=== PATIENT | female | born 1975 | race Caucasian/White ===

== ENCOUNTER 2018-02-05 08:00 | Inpatient (IN) | payer BC ==
--- NOTE | 2018-02-04 09:46 | HP ---
Admitting History and Physical - Primary Care Physician PCP: Gerson Augustin - Admission Chief Complaint: BRCA positve History of Present Illness: 42 year old premenapausal female ,BRCA1 positive, with strong family H/O breast cancer. She underwent reduction mammoplasty at age 24. Mammogram 2016 was negative and breast MRI 08/2017 birad 2. She is here for risk reducing prophylactic mastectomies and reconstruction. History Source: Patient Limitations to Obtaining History: No Limitations - Past Surgical History Past Surgical History: Yes: (x2) Additional Past Surgical History: reduction mastopexy at age 24. - Smoking History Smoking history: Former smoker Have you smoked in the past 12 months: No - Alcohol/Substance Use Hx Alcohol Use: Yes (social) Home Medications - Allergies Allergies/Adverse Reactions: Allergies Allergy/AdvReac Type Severity Reaction Status Date / Time No Known Allergies Allergy Verified 02/04/18 09:46 Family Disease History - Family Disease History Family Disease History: CA: Father (prostate and liver ca 55), Mother ( Breast cancer 47.59,66 BRCA +) Other Family History: Mat GGm breast ca 40-50. mat GA breast ca 40. pat GM throat ca 80 Physical Examination Constitutional: Yes: Well Nourished Breast(s): Yes: Other (obvious bilateral reduction mastopexy incisions. C cup breasts , no palpable densities or adnopathy bilaterally) Problem List - Problems (1) BRCA gene mutation positive Code(s): Z15.01 - GENETIC SUSCEPTIBILITY TO MALIGNANT NEOPLASM OF BREAST; Z15.09 - GENETIC SUSCEPTIBILITY TO OTHER MALIGNANT NEOPLASM Assessment/Plan Bilateral total mastectomies with reconstruction
[2018-02-12 09:11] VITALS: BMI 31.4
[2018-02-14] MEDS ORDERED: HEPARIN NA (PORCINE) 5,000 UNITS/ML 1ML VIAL ONE (07:13)
[2018-02-14] MEDS ORDERED: BUPIVACAINE HCL/PF 0.25% (2.5MG/ML) 10 ML VIAL ONE (07:13)
[2018-02-14] MEDS ORDERED: LIDOCAINE 1%/EPI 1:100000 (20 ML MULTI DOSE VIAL) ONE (07:13)
[2018-02-14] MEDS ORDERED: PAPAVERINE HCL 30 MG/1 ML 10 ML VIAL NR ONE (07:14)
[2018-02-14] MEDS ORDERED: ROCURONIUM BROMIDE 50 MG/5 ML VIAL ONE ×4 (07:15→15:16)
[2018-02-14] MEDS ORDERED: SUCCINYLCHOLINE CHLORIDE 200 MG/10 ML VIAL ONE (07:15)
[2018-02-14] MEDS ORDERED: PROPOFOL 20 ML ONE ×2 (07:15→17:37)
[2018-02-14] MEDS ORDERED: fentaNYL CITRATE 250 MCG/5 ML VIAL ONE ×2 (07:15→10:37)
[2018-02-14] MEDS ORDERED: DEXAMETHASONE SOD PHOSPHATE 4 MG/1 ML VIAL ONE (07:16)
[2018-02-14] MEDS ORDERED: MIDAZOLAM HCL 2 MG/2 ML SINGLE DOSE VIAL ONE ×2 (07:16→07:53)
[2018-02-14] MEDS ORDERED: LIDOCAINE HCL/PF 2% SDV 5ML VIAL ONE (07:16)
--- NOTE | 2018-02-14 07:55 | HP ---
History & Physical Update - History History: No Change - Physical Physical: No Change - Assessment Assessment: No Change - Plan Plan: No Change (no changes since visit on 02/04/18)
[2018-02-14] MEDS ORDERED: HEPARIN NA (PORCINE) 5,000 UNITS/ML 1ML VIAL SQ ONE (08:10)
[2018-02-14] MEDS ORDERED: ceFAZolin SODIUM 1 GM VIAL ONE ×2 (08:19→21:27)
[2018-02-14] MEDS ORDERED: ceFAZolin SODIUM 1 GM VIAL IVPB ONE ×2 (08:20→08:26)
[2018-02-14] MEDS ORDERED: BUPIVACAINE LIPOSOME/PF (EXPAREL) 266 MG/20 ML VIAL NR ONE (09:00)
--- NOTE | 2018-02-14 14:19 | OP ---
DATE OF OPERATION: 02/14/2018 PREOPERATIVE DIAGNOSIS: Genetic susceptibility to breast cancer, high-risk, BRCA1-positive. POSTOPERATIVE DIAGNOSIS: Genetic susceptibility to breast cancer, high-risk, BRCA1-positive. PROCEDURE: Bilateral total nipple-sparing mastectomy through an inframammary approach with bilateral BALJIT flap reconstruction. ANESTHESIA: General endotracheal anesthesia. PRIMARY SURGEON: Mellissa Bragg MD WOOD GOUGER: JOSELO Le PRIMARY SURGEON: For the bilateral BALJIT flap reconstruction was Mellissa Araujo MD, with his co-surgeon, Apollo Holt MD, and their veterinary technician assistant is JOSELO. COMPLICATIONS: There were no complications. INDICATIONS FOR PROCEDURE: Briefly, the patient is a 42-year-old, G2, P3, premenopausal, white female with English, Ecuadorean, and Irish heritage. She does have some maternal Ashkenazi Zoroastrian heritage. The patient's mother had breast cancer at age 47 then later at 59 and 66 and tested BRCA1 positive. The patient herself tested BRCA1 positive in May 2017. She has a history of undergoing bilateral reduction mastopexy surgery at age 24. The patient was seen in consultation regarding risk-reduction strategies for breast cancer and understood her options and chose to undergo bilateral risk-reduction, prophylactic mastectomy. She understood our nipple-sparing technique and understood all risks, complications including risks of skin flap necrosis, nipple loss, hematoma, and infection, and was willing to proceed. She was seen by our plastic surgeons preoperatively and understood the reconstruction options and chose to have BALJIT flap reconstruction. DESCRIPTION OF PROCEDURE: The patient was brought in for the surgery, on February 14, 2018. In the holding area, verification was made and informed consent was obtained. She was marked preoperatively by the plastic surgeons. The patient was brought into the operating room and laid on the OR table in the supine position. Venodynes were placed on the lower extremities prior to induction. She received 2 grams of Ancef prior to incision. She underwent general endotracheal anesthesia. Both breasts were sterilely prepped and draped in the usual fashion as well as the abdomen. The plastic surgeons marked out the abdominal perforators using the SPY skin perfusion device at the beginning of the case prior to incision. They also used hand-held Doppler to identify the perforators. Once the patient was properly anesthetized and sterilely prepped and draped in the usual fashion, the mastectomies were begun. The left mastectomy was first performed through an inframammary incision probably about 15 cm in length to allow exposure for the BALJIT flap reconstruction. The incision was placed in the inframammary fold. The skin edge was everted and the breast was retracted inferiorly using Turner clamps. The skin flap was raised superiorly to the level of the clavicle, medially to the level of the sternum, laterally to the level of the latissimus, and inferiorly below the level of the inframammary fold. The skin flap was raised using the Peak radiofrequency device. The breast was then taken down off the pectoralis major muscle using electrocautery from [id number] and completely removed intact. It was oriented with a long lateral, short superior suture and weighed to allow for appropriate cosmetic result. Hemostasis was achieved and the wound was copiously irrigated with warm sterile saline. The skin flaps were trimmed for a good cosmetic result. A retroareolar biopsy was taken underneath the left nipple-areolar complex and sent for frozen section came back benign, so the nipple was spared. At this point, the right breast was approached. Again, inframammary incision was made symmetrical to the left side about 15 cm in length. The skin edges were everted and the breast was retracted inferiorly using Finney clamps. The skin flap was raised using the Peak radiofrequency device superiorly to the level of the clavicle, medially to the level of the sternum, laterally to the level of the latissimus, and inferiorly below the level of the inframammary fold. The breast was taken down off the pectoralis major muscle using the electrocautery from [id number]-[id number] and completely removed intact. It was oriented with a long lateral, short superior suture and weighed to allow for appropriate cosmetic result. Hemostasis was achieved using electrocautery and the wound was copiously irrigated with warm sterile saline. A retroareolar biopsy was taken underneath the right nipple-areolar complex and sent for frozen section came back negative, and so the right nipple was spared, as well. We did use the SPY skin perfusion device at the end of the mastectomies which showed good skin perfusion of both mastectomy skin flaps. The rest of the case was performed and will be dictated by Dr. Araujo and Dr. Pringle to include the BALJIT flap reconstruction. All wounds will be closed by Plastic Surgery. The patient will be admitted postoperatively into the ICU for close monitoring of her flaps. All sponge and needle counts were correct at this point in the case and estimated blood loss at this point was about 100 mL. She was hemodynamically stable. MELLISSA BRAGG M.D. JO [id number]
[2018-02-14] MEDS ORDERED: NEOSTIGMINE METHYLSULFATE 0.5 MG/ML - 10 ML MDV ONE (17:52)
[2018-02-14] MEDS ORDERED: diazePAM 5 MG TABLET PO PRN (17:56)
[2018-02-14] MEDS ORDERED: DEXTROSE 5%-0.45% SALINE 1,000 ML IV SCH (18:00)
[2018-02-14] MEDS ORDERED: ACETAMINOPHEN 1000 MG/100 ML VIAL (NON FORMULARY) IVPB ONE (18:15)
--- NOTE | 2018-02-14 18:21 | OP ---
Operative Note - Note: Operative Date: 02/14/18 Pre-Operative Diagnosis: Genetic susceptibility to Breast Cancer Operation: Bilateral breast reconstruction with Deep Inferior Epigastric Ball Thread Machine Tender Microvascular Free Flaps Findings: C/W Dx Implants: None Post-Operative Diagnosis: Same as Pre-op Surgeon: Linden Araujo Intake Counselor: Apollo Holt Anesthesia: General Specimens Removed: As per surgical oncology Estimated Blood Loss (mls): 250 Drains & Tubes with Location: #15 Round elaine drain to each breast. #19 Round elaine drain x2 to abdomen Blood Volume Replaced (mls): 0 Operative Report Dictated: Yes
[2018-02-14] MEDS ORDERED: ONDANSETRON 4 MG/2 ML VIAL IVPUSH PRN (18:26)
[2018-02-14] MEDS ORDERED: ACETAMINOPHEN INJECTION 100 ML IVPB ONE (18:29)
[2018-02-14] MEDS ORDERED: LACTATED RINGERS SOLUTION 1,000 ML IV SCH ×3 (18:30→21:13)
[2018-02-14] MEDS ORDERED: MIDAZOLAM HCL 2 MG/2 ML SINGLE DOSE VIAL IVPUSH ONE (18:45)
--- NOTE | 2018-02-14 20:53 | CONSULT ---
Consultation: REQUESTING PROVIDER: CONSULT REQUEST: We have been asked to medically evaluate this patient for ( intensive care ). HISTORY OF PRESENT ILLNESS: 42 y/o f with BRCA1 postive and strong family h/o breast cancer was admitted for prophylactic/ risk reduction mastectomy with breast reconstruction. She underwent reduction mammoplasty at age 24. Mammogram 05/2017 was negative and breast MRI 08/2017 [facility] REVIEW OF SYSTEMS: PHYSICAL EXAMINATION Vital Signs - 24 hr 02/14/18 02/14/18 07:06 18:16 Temperature 98.2 F 99.1 F Pulse Rate 78 82 Respiratory 16 18 Rate Blood Pressure 119/82 149/46 O2 Sat by Pulse 100 100 Oximetry (%) GENERAL: Awake, alert, and fully oriented, in pain HEAD: Normal with no signs of trauma. EARS, NOSE, THROAT:dry mucous membranes. NECK: Normal range of motion, supple without lymphadenopathy, JVD, or masses. LUNGS: Breath sounds equal, clear to auscultation bilaterally. No wheezes, and no crackles. No accessory muscle use. HEART: Regular rate and rhythm, normal S1 and S2 without murmur, ABDOMEN: Soft, nontender, not distended, suture line healthy, drains in situ draining haemorrhaic fluid, suture line right breast next to areola healty, MUSCULOSKELETAL: Normal range of motion at all joints. No bony deformities or tenderness. No CVA tenderness. UPPER EXTREMITIES: 2+ pulses, warm, No peripheral edema. LOWER EXTREMITIES: warm, well-perfused. No calf tenderness. SKIN: Warm, dry, Laboratory Results - last 24 hr 02/14/18 02/14/18 02/14/18 06:13 06:13 06:50 Serum , Qual Negative Blood Type O NEGATIVE O NEGATIVE Antibody Screen Negative Active Medications Generic Name Dose Route Start Last Admin Trade Name Freq PRN Reason Stop Dose Admin Aspirin 325 mg 02/14/18 19:00 Asa - PO DAILY [facility]E Diazepam 5 mg 02/14/18 19:00 Valium - PO Q8H PRN ANXIETY Docusate Sodium 100 mg 02/14/18 22:00 Colace - PO BID [facility] Enoxaparin Sodium 40 mg 02/15/18 10:00 Lovenox - SQ DAILY [facility] Cefazolin Sodium 1 gm/ 50 mls @ 100 mls/hr 02/14/18 21:00 Dextrose IVPB 02/15/18 20:59 Q6H-IV [facility] Dextrose/Sodium Chloride 1,000 mls @ 125 mls/hr 02/14/18 18:00 D5-1/2ns - IV 02/15/18 07:59 ASDIR [facility] Dextrose/Sodium Chloride 1,000 mls @ 75 mls/hr 02/15/18 08:00 D5-1/2ns - IV ASDIR [facility] Lactated Ringer's 1,000 mls @ 75 mls/hr 02/14/18 18:30 Lactated Ringers Solution IV ASDIR [facility] Ondansetron HCl 4 mg 02/14/18 18:26 Zofran Injection IVPUSH 02/15/18 03:00 Q6H PRN NAUSEA AND/OR VOMITING Oxycodone HCl 5 mg 02/15/18 17:56 Roxicodone - PO Q4H PRN PAIN LEVEL 1-5 Oxycodone HCl 10 mg 02/14/18 17:56 Roxicodone - PO Q4H PRN PAIN LEVEL 6-10 ASSESSMENT/PLAN: Risk reduction/prophylactic b/l mastectomy with reconstruction s/p Bilateral breast reconstruction with Deep Inferior Epigastric Textile Technical Officer Microvascular Free Flaps POD # 0 Monitor vitals frequent flap check. on aspirin 325 daily on cefazolin as per surgery team. pain control, on oxycodone. continue with IV fluid. NPO Today zofran for nausea. monitor drain outputs incentive spirometry. fluid on LR 125 ml/hr electrolyte; in am nutrition clear liquid from tomorrow dvt pro on lovenox 40 and scd gi pro: pepcid iv dispo: icu Visit type - Emergency Visit Emergency Visit: Yes ED Registration Date: 02/14/18 Care time: The patient presented to the Emergency Department on the above date and was hospitalized for further evaluation of their emergent condition. - New Patient This patient is new to me today: Yes Date on this admission: 02/14/18 - Critical Care Critical Care patient: Yes Total Critical Care Time (in minutes): 45 Critical Care Statement: The care of this patient involved high complexity decision making to prevent further life threatening deterioration of the patient 's condition and/or to evaluate & treat vital organ system(s) failure or risk of failure.
[2018-02-14] MEDS ORDERED: DEXTROSE 5%-WATER - 50 ML IVPB ONE (21:27)
[2018-02-14] MEDS: FAMOTIDINE 20 MG/50 ML IVPB 20 MG/50 ML MG IVPB SCH (22:01)
[2018-02-14] MEDS: DOCUSATE SODIUM 100 MG CAPSULE (FP) PO SCH (22:02)
[2018-02-14] MEDS: CEFAZOLIN 1 GM in DEXTROSE 5%-WATER - 50 ML IVPB SCH (22:02)
[2018-02-14] MEDS: oxyCODONE HCL 5 MG TABLET PO PRN (22:04)
[2018-02-14] MEDS: ASPIRIN 325 MG TABLET PO SCH (22:04)
[2018-02-14] MEDS: diazePAM 5 MG TABLET PO PRN (22:51)
[2018-02-15] MEDS ORDERED: ceFAZolin SODIUM 1 GM VIAL ONE ×3 (02:03→15:33)
[2018-02-15] MEDS ORDERED: DEXTROSE 5%-WATER - 50 ML IVPB ONE ×3 (02:03→15:33)
[2018-02-15] MEDS: CEFAZOLIN 1 GM in DEXTROSE 5%-WATER - 50 ML IVPB SCH ×2 (02:05→09:18)
[2018-02-15] MEDS: oxyCODONE HCL 5 MG TABLET PO PRN ×3 (02:06→17:08)
[2018-02-15 06:17] LABS: ANION GAP 7 (8-16); BLOOD UREA NITROGEN 12 mg/dL (7-18); CALCIUM 7.9 mg/dL (8.5-10.1); CHLORIDE 106 mmol/L (98-107); CO2 26 mmol/L (21-32); CREATININE 0.5 mg/dL (0.55-1.02); GLUCOSE,RANDOM 119 mg/dL (74-106); POTASSIUM 4.1 mmol/L (3.5-5.1); SODIUM 139 mmol/L (136-145)
[2018-02-15 06:37] LABS: BASO % 0.3 % (0-2.0); EOS % 0.2 % (0-4.5); HEMATOCRIT 29.9 % (32.4-45.2); HEMOGLOBIN 9.7 GM/dL (10.7-15.3); LYMPH % 13.1 % (8-40); MCH 26.3 pg (25.7-33.7); MCHC 32.4 g/dl (32.0-36.0); MEAN CELL VOLUME 81.2 fl (80-96); MEAN PLT VOLUME 10.5 fl (7.5-11.1); NEUT % 74.4 % (42.8-82.8); PLATELET COUNT 202 K/MM3 (134-434); RBC 3.68 M/mm3 (3.60-5.2); RDW 15.5 % (11.6-15.6); WHITE BLOOD COUNT 13.9 K/mm3 (4.0-10.0)
--- NOTE | 2018-02-15 06:57 | SURG ---
Surgery Consumer Credit Counselor Note Consumer Credit Counselor: Bruno Cho PA-C Date of Service: 02/14/18 Diagnosis: Genetic susceptibility to Breast Cancer Procedure: Bilateral breast reconstruction with Deep Inferior Epigastric Yarn Washer Microvascular Free Flaps I was present for the entirety of the operative procedure. For further detail, please refer to operative report. Visit type - Case Type Case Type: Scheduled - New patient This patient is new to me today: Yes Date on this admission: 02/15/18
[2018-02-15] MEDS ORDERED: DEXTROSE 5%-0.45% SALINE 1,000 ML IV SCH (08:00)
[2018-02-15] MEDS: DOCUSATE SODIUM 100 MG CAPSULE (FP) PO SCH ×2 (09:18→21:16)
[2018-02-15] MEDS: ASPIRIN 325 MG TABLET PO SCH (09:18)
[2018-02-15] MEDS: diazePAM 5 MG TABLET PO PRN ×2 (09:18→22:01)
[2018-02-15] MEDS: FAMOTIDINE 20 MG/50 ML IVPB 20 MG/50 ML MG IVPB SCH (09:19)
--- NOTE | 2018-02-15 09:20 | PN ---
Progress Note (short form) - Note Progress Note: POD#1 Pt states that she having arm pain, left more tender than the right. No numbness or tingling and hurts more when extending/flexing the elbows. No nausea /emesis and tolerated clears. Vital Signs Period Temp Pulse Resp BP Sys/Carnes Pulse Ox Last 24 Hr 98.3 F-99.1 F 70-89 16-22 118-1136/46-85 100-100 FC-850 yellow urine Thad's serosangrenous THAD: Left upper 38ml Right upper 17ml Left lower 30ml Right lower 16 ml GEN: Appears comfortable Right breast: flap with good cap refill/warm and inc c/d/i, good doppler signal Left breast: flap with good cap refill/warm and inc c/d/i, good doppler signal Abd: inc c/d/i without drainage noted/or erythema LE: no calf tenderness, TEDs and SCDs in place Upper ext: 5/5 flexion/extension b/l, web programmer strength equal b/l. +2 radial pulse. Right AC IV site without any erythema, not tender to touch. CBC, BMP //18 05:30 //18 05:30 A/p: 42 yo female s/p Bilateral breast reconstruction with Deep Inferior Epigastric Superior Court Clerk Microvascular Free Flaps Pt with good blow flow/doppler signals to flaps b/l. Continue to monitor as per protocol Carlson to be removed today Diet advanced/continue IV hydration until tolerating regular diet DVT ppx with lovenox SQ/ELOISA/SCDs HOB/feet to remain flexed at all times Added Oxycontin 10mg BID, scheduled D/w Dr. Araujo
--- NOTE | 2018-02-15 10:07 | PN ---
Progress Note, Physician Chief Complaint: High risk breast cancer,Gene positive, S/P bilateral total mastectomies with BALJIT reconstruction POD # 1 History of Present Illness: Patient is c/o pain in chest area and left arm where prior IV was placed, sitting up in bed and would like to get out of bed today. no nausea or vomiting - Current Medication List Current Medications: Active Medications Aspirin (Asa -) 325 mg PO DAILY [facility] Last Admin: 02/15/18 09:18 Dose: 325 mg Diazepam (Valium -) 5 mg PO Q8H PRN PRN Reason: ANXIETY Last Admin: 02/15/18 09:18 Dose: 5 mg Docusate Sodium (Colace -) 100 mg PO BID [facility] Last Admin: 02/15/18 09:18 Dose: 100 mg Enoxaparin Sodium (Lovenox -) 40 mg SQ DAILY [facility] Cefazolin Sodium 1 gm/ (Dextrose) 50 mls @ 100 mls/hr IVPB Q6H-IV [facility] Stop: 02/15/18 20:59 Last Admin: 02/15/18 09:18 Dose: 100 mls/hr Dextrose/Sodium Chloride (D5-1/2ns -) 1,000 mls @ 75 mls/hr IV ASDIR [facility] Last Admin: 02/14/18 20:30 Dose: 0 mls Famotidine/Sodium Chloride (Pepcid 20 Mg Premixed Ivpb -) 20 mg in 50 mls @ 100 mls/hr IVPB BID [facility] Last Admin: 02/15/18 09:19 Dose: 100 mls/hr Oxycodone HCl (Roxicodone -) 5 mg PO Q4H PRN PRN Reason: PAIN LEVEL 1-5 Oxycodone HCl (Roxicodone -) 10 mg PO Q4H PRN PRN Reason: PAIN LEVEL 6-10 Last Admin: 02/15/18 08:55 Dose: 10 mg - Objective Vital Signs: Vital Signs Temperature 98.4 F 02/15/18 02:12 Pulse Rate 80 02/15/18 08:00 Respiratory Rate 16 02/15/18 08:00 Blood Pressure 140/64 02/15/18 08:00 O2 Sat by Pulse Oximetry (%) 100 02/14/18 21:00 Breast(s): Yes: Other (Breast and abdominal incisions intact without drainage good doppler blood flow to flaps left upper extremity tenderness in area where blood was drawn no erythema or swelling) Labs: CBC, BMP 02/15/18 05:30 02/15/18 05:30 Problem List - Problems (1) BRCA gene mutation positive Code(s): Z15.01 - GENETIC SUSCEPTIBILITY TO MALIGNANT NEOPLASM OF BREAST; Z15.09 - GENETIC SUSCEPTIBILITY TO OTHER MALIGNANT NEOPLASM Assessment/Plan Dr Araujo to evaluate patient this am consider CERAMICS TEACHER for pain management warm compress left arm Dr Grady to evaluate left arm pain consider Carlson to be removed and OOb
[2018-02-15 10:59] LABS: MAGNESIUM 1.9 mg/dL (1.8-2.4)
[2018-02-15] MEDS: oxyCODONE HCL 10 MG SUSTAINED ACTING TABLET PO SCH ×2 (11:25→21:16)
[2018-02-15] MEDS: ENOXAPARIN NA (PORCINE) 40 MG/0.4 ML DISP.SYRIN SQ SCH (11:26)
[2018-02-15] MEDS ORDERED: ONDANSETRON 4 MG/2 ML VIAL IVPUSH ONE (11:32)
--- NOTE | 2018-02-15 12:02 | PN ---
Progress Note (short form) - Note Progress Note: Doing well Pulses good on flaps OOB Ambulation Eat D/c possible tomorrow Senior Applications Engineer consult and PT consult
--- NOTE | 2018-02-15 12:45 | PN ---
Teaching Attending Note Name of Resident: Mello Suarez ATTENDING PHYSICIAN STATEMENT I saw and evaluated the patient. I reviewed the resident's note and discussed the case with the resident. I agree with the resident's findings and plan as documented. SUBJECTIVE: Patient seen and examined in the ICU. Awake and alert. Reports some Left UE pain/discomfort. NO CP or SOB. Seen by surgery this AM. Intake & Output 02/12/18 02/13/18 02/14/18 02/15/18 23:59 23:59 23:59 23:59 Intake Total 4050 Output Total 1126.0 580 Balance 2924.0 -580 Weight 195 lb Last Vital Signs Temp Pulse Resp BP Pulse Ox 98.4 F 77 14 148/64 100 02/15/18 02:12 02/15/18 10:00 02/15/18 10:00 02/15/18 10:00 02/14/18 21:00 Active Medications Aspirin (Asa -) 325 mg PO DAILY [facility] Last Admin: 02/15/18 09:18 Dose: 325 mg Diazepam (Valium -) 5 mg PO Q8H PRN PRN Reason: ANXIETY Last Admin: 02/15/18 09:18 Dose: 5 mg Docusate Sodium (Colace -) 100 mg PO BID [facility] Last Admin: 02/15/18 09:18 Dose: 100 mg Enoxaparin Sodium (Lovenox -) 40 mg SQ DAILY [facility] Last Admin: 02/15/18 11:26 Dose: 40 mg Cefazolin Sodium 1 gm/ (Dextrose) 50 mls @ 100 mls/hr IVPB Q6H-IV [facility] Stop: 02/15/18 20:59 Last Admin: 02/15/18 09:18 Dose: 100 mls/hr Dextrose/Sodium Chloride (D5-1/2ns -) 1,000 mls @ 75 mls/hr IV ASDIR [facility] Last Admin: 02/14/18 20:30 Dose: 0 mls Famotidine/Sodium Chloride (Pepcid 20 Mg Premixed Ivpb -) 20 mg in 50 mls @ 100 mls/hr IVPB BID [facility] Last Admin: 02/15/18 09:19 Dose: 100 mls/hr Oxycodone HCl (Roxicodone -) 5 mg PO Q4H PRN PRN Reason: PAIN LEVEL 1-5 Oxycodone HCl (Roxicodone -) 10 mg PO Q4H PRN PRN Reason: PAIN LEVEL 6-10 Last Admin: 02/15/18 08:55 Dose: 10 mg Oxycodone HCl (Oxycontin -) 10 mg PO BID [facility] Last Admin: 02/15/18 11:25 Dose: 10 mg GENERAL: Awake, alert, and fully oriented, anxious HEAD: Normal with no signs of trauma. EARS, NOSE, THROAT:dry mucous membranes. NECK: Normal range of motion, supple without lymphadenopathy, JVD, or masses. LUNGS: Breath sounds equal, clear to auscultation bilaterally. No wheezes, and no crackles. No accessory muscle use. HEART: Regular rate and rhythm, normal S1 and S2 without murmur, ABDOMEN: Soft, nontender, not distended, suture line healthy, drains in situ draining serosanguinous fluid, suture line right breast next to areola healthy MUSCULOSKELETAL: Normal range of motion at all joints. No bony deformities or tenderness. No CVA tenderness. UPPER EXTREMITIES: 2+ pulses, warm, No peripheral edema. LOWER EXTREMITIES: warm, well-perfused. No calf tenderness. SKIN: Warm, dry, Laboratory Results - last 24 hr 02/15/18 02/15/18 02/15/18 05:30 05:30 05:30 WBC 13.9 H RBC 3.68 Hgb 9.7 L Hct 29.9 L MCV 81.2 MCH 26.3 MCHC 32.4 RDW 15.5 Plt Count 202 MPV 10.5 Absolute Neuts (auto) 10.4 Neutrophils % 74.4 Lymphocytes % 13.1 Monocytes % 12.0 H Eosinophils % 0.2 Basophils % 0.3 Nucleated RBC % 0 Sodium 139 Potassium 4.1 Chloride 106 Carbon Dioxide 26 Anion Gap 7 L BUN 12 Creatinine 0.5 L Creat Clearance w eGFR > 60 Random Glucose 119 H Calcium 7.9 L Phosphorus 3.0 Cancelled Magnesium 1.9 Cancelled ASSESSMENT/PLAN: POD #1: Bilateral breast reconstruction with Deep Inferior Epigastric Railway Track Plant Operator Microvascular Free Flaps Flap check. ASA Cefazolin as per surgery team. Pain control IVF Normal transfusion thresholds PO as tolerated VTE prophylaxis Zofran for nausea. Monitor drain outputs Incentive spirometry. Dr Spaulding
--- NOTE | 2018-02-15 13:06 | PN ---
Progress Note (short form) - Note Progress Note: Anesthesia Post-op Note Pt s/p bilateral nipple sparing mastectomy w/ flap on 02/14/18 with general anesthesia. Pt reports pain improved after addition of Oxycontin. Tolerating liquids. Using incentive spirometer. Awaiting OT/PT. Vital Signs Temperature 98.4 F 02/15/18 02:12 Pulse Rate 77 02/15/18 10:00 Respiratory Rate 14 02/15/18 10:00 Blood Pressure 148/64 02/15/18 10:00 O2 Sat by Pulse Oximetry (%) 100 02/14/18 21:00 -Continue care per ICU team and surgery -Encourage incentive spirometry -Bowel regimen
[2018-02-15] MEDS ORDERED: morphine SULFATE 4 MG/ML VIAL IVPUSH PRN (13:52)
[2018-02-15] MEDS ORDERED: ONDANSETRON 4 MG/2 ML VIAL ONE (14:08)
--- NOTE | 2018-02-15 18:39 | PN ---
Physical Exam: SUBJECTIVE: Patient seen and examined today in icu. POD #1: Bilateral breast reconstruction with Deep Inferior Epigastric [employer] Microvascular Free Flaps. Pt is in severe pain and is anxious. Endorses pain in left arm and chest. OBJECTIVE: Vital Signs Period Temp Pulse Resp BP Sys/Carnes Pulse Ox Last 24 Hr 98.3 F-99.2 F 70-89 14-22 118-1136/50-85 100-100 GENERAL: The patient is awake, alert, and fully oriented, anxious and in pain. HEAD: Normal with no signs of trauma. EYES: PERRL, extraocular movements intact, sclera anicteric, conjunctiva clear. No ptosis. ENT: Ears normal, nares patent, oropharynx clear without exudates, moist mucous membranes. NECK: Trachea midline, full range of motion, supple. LUNGS: Breath sounds equal, clear to auscultation bilaterally, no wheezes, no crackles, no accessory muscle use. HEART: Regular rate and rhythm, S1, S2 without murmur, rub or gallop. ABDOMEN: Soft, nontender, nondistended, normoactive bowel sounds, no guarding, no rebound, no hepatosplenomegaly, no masses. EXTREMITIES: 2+ pulses, warm, well-perfused, no edema. NEUROLOGICAL: Cranial nerves II through XII grossly intact. Normal speech, gait not observed. PSYCH: Normal mood, normal affect. SKIN: Warm, dry, normal turgor, no rashes or lesions noted Laboratory Results - last 24 hr 02/15/18 02/15/18 02/15/18 05:30 05:30 05:30 WBC 13.9 H RBC 3.68 Hgb 9.7 L Hct 29.9 L MCV 81.2 MCH 26.3 MCHC 32.4 RDW 15.5 Plt Count 202 MPV 10.5 Absolute Neuts (auto) 10.4 Neutrophils % 74.4 Lymphocytes % 13.1 Monocytes % 12.0 H Eosinophils % 0.2 Basophils % 0.3 Nucleated RBC % 0 Sodium 139 Potassium 4.1 Chloride 106 Carbon Dioxide 26 Anion Gap 7 L BUN 12 Creatinine 0.5 L Creat Clearance w eGFR > 60 Random Glucose 119 H Calcium 7.9 L Phosphorus 3.0 Cancelled Magnesium 1.9 Cancelled Active Medications Generic Name Dose Route Start Last Admin Trade Name Freq PRN Reason Stop Dose Admin Acetaminophen 650 mg 02/15/18 13:53 Tylenol - PO Q4H PRN PAIN LEVEL 1-5 Aspirin 81 mg 02/16/18 10:00 Asa - PO DAILY [facility]E Diazepam 5 mg 02/14/18 19:00 02/15/18 09:18 Valium - PO 5 mg Q8H PRN Administration ANXIETY Docusate Sodium 100 mg 02/14/18 22:00 02/15/18 09:18 Colace - PO 100 mg BID [facility]E Administration Enoxaparin Sodium 40 mg 02/15/18 10:00 02/15/18 11:26 Lovenox - SQ 40 mg DAILY [facility] Administration Cefazolin Sodium 1 gm/ 50 mls @ 100 mls/hr 02/14/18 21:00 02/15/18 09:18 Dextrose IVPB 02/15/18 20:59 100 mls/hr Q6H-IV [facility] Administration Dextrose/Sodium Chloride 1,000 mls @ 75 mls/hr 02/15/18 08:00 02/14/18 20:30 D5-1/2ns - IV 0 mls ASDIR HERVE Administration Famotidine/Sodium Chloride 20 mg in 50 mls @ 100 mls/hr 02/14/18 22:00 09:19 Pepcid 20 Mg Premixed Ivpb - IVPB 100 mls/hr BID [facility] Administration Morphine Sulfate 4 mg 02/15/18 13:52 Morphine Sulfate IVPUSH Q4H PRN PAIN LEVEL 6-10 Oxycodone HCl 5 mg 02/15/18 17:56 Roxicodone - PO Q4H PRN PAIN LEVEL 1-5 Oxycodone HCl 10 mg 02/14/18 17:56 02/15/18 17:08 Roxicodone - PO 10 mg Q4H PRN Administration PAIN LEVEL 6-10 Oxycodone HCl 10 mg 02/15/18 10:33 02/15/18 11:25 Oxycontin - PO 10 mg BID [facility]E Administration ASSESSMENT/PLAN: 42 y/o BRCA1 positive F with strong family h/o breast cancer. She underwent reduction mammoplasty at age 24. Admitted for prophylactic/ risk reduction mastectomy with breast reconstruction. Bilateral breast reconstruction with Deep Inferior Epigastric [employer] Microvascular Free Flaps Flap check Incentive Spirometry Cefazolin 1 gm as per surgery Pain control- Oxycodone and morphine sulfate monitor drain outputs SCD's both legs Zofran for Nausea FEN Dextrose/Sodium Chloride D5-1/2ns Monitor electrolytes Regular Diet DVT ppx: Lovenox 40 mg sq daily Aspirin 81 mg po daily Dispo: Monitor in icu. Visit type - Emergency Visit Emergency Visit: No - New Patient This patient is new to me today: Yes Date on this admission: 02/15/18 - Critical Care Critical Care patient: Yes Total Critical Care Time (in minutes): 35 Critical Care Statement: The care of this patient involved high complexity decision making to prevent further life threatening deterioration of the patient 's condition and/or to evaluate & treat vital organ system(s) failure or risk of failure.
[2018-02-15] MEDS: RANITIDINE HCL 150 MG TABLET (FP) PO SCH (21:23)
[2018-02-15] MEDS: ACETAMINOPHEN 325 MG TABLET (FP) PO PRN (22:01)
[2018-02-16] MEDS ORDERED: TAMSULOSIN HCL 0.4 MG CAP.ER.24H (FP) PO ONE ×2 (04:33→13:29)
[2018-02-16] MEDS: oxyCODONE HCL 5 MG TABLET PO PRN ×2 (04:56→05:06)
[2018-02-16] MEDS: ACETAMINOPHEN 325 MG TABLET (FP) PO PRN (06:15)
[2018-02-16 06:30] LABS: BASO % 0.3 % (0-2.0); EOS % 0.3 % (0-4.5); HEMATOCRIT 25.7 % (32.4-45.2); HEMOGLOBIN 8.5 GM/dL (10.7-15.3); LYMPH % 8.8 % (8-40); MCH 26.9 pg (25.7-33.7); MCHC 32.9 g/dl (32.0-36.0); MEAN CELL VOLUME 81.7 fl (80-96); MONO % 9.4 % (3.8-10.2); NEUT % 81.2 % (42.8-82.8); PLATELET COUNT 169 K/MM3 (134-434); RBC 3.15 M/mm3 (3.60-5.2); RDW 15.6 % (11.6-15.6); WHITE BLOOD COUNT 12.3 K/mm3 (4.0-10.0)
[2018-02-16 06:52] LABS: ALBUMIN 2.6 g/dl (3.4-5.0); ALK PHOS 107 U/L (45-117); ANION GAP 5 (8-16); BILIRUBIN,TOTAL 0.4 mg/dL (0.2-1.0); BLOOD UREA NITROGEN 8 mg/dL (7-18); CALCIUM 7.6 mg/dL (8.5-10.1); CHLORIDE 105 mmol/L (98-107); CO2 30 mmol/L (21-32); CREATININE 0.5 mg/dL (0.55-1.02); GLUCOSE,RANDOM 95 mg/dL (74-106); MAGNESIUM 1.9 mg/dL (1.8-2.4); PHOSPHOROUS 1.7 mg/dL (2.5-4.9); POTASSIUM 3.7 mmol/L (3.5-5.1); SGOT/AST 33 U/L (15-37); SGPT/ALT 31 U/L (12-78); SODIUM 140 mmol/L (136-145); TOT PROT 5.1 g/dl (6.4-8.2)
[2018-02-16] MEDS: DOCUSATE SODIUM 100 MG CAPSULE (FP) PO SCH ×2 (09:11→21:06)
[2018-02-16] MEDS: NAPH,MB-DB/K PH,MBDB POWDER PACKET PO SCH ×3 (09:11→21:06)
[2018-02-16] MEDS: oxyCODONE HCL 10 MG SUSTAINED ACTING TABLET PO SCH ×2 (09:11→21:06)
[2018-02-16] MEDS: ENOXAPARIN NA (PORCINE) 40 MG/0.4 ML DISP.SYRIN SQ SCH (09:12)
[2018-02-16] MEDS: diazePAM 5 MG TABLET PO PRN ×2 (09:12→21:06)
[2018-02-16] MEDS: ASPIRIN 81 MG CHEWABLE TABLETS PO SCH (09:12)
[2018-02-16] MEDS: RANITIDINE HCL 150 MG TABLET (FP) PO SCH ×2 (09:12→21:06)
[2018-02-16] MEDS: POLYETHYLENE GLYCOL 3350 119 GM BTL PO SCH ×2 (10:00→18:00)
--- NOTE | 2018-02-16 10:05 | PN ---
Teaching Attending Note Name of Resident: Janie Harris ATTENDING PHYSICIAN STATEMENT I saw and evaluated the patient. I reviewed the resident's note and discussed the case with the resident. I agree with the resident's findings and plan as documented. SUBJECTIVE: Patient seen and examined in the ICU. Awake and alert. Reports some improvement in Left UE pain/discomfort. Diffuse body aches. No CP or SOB. Intake & Output 02/13/18 02/14/18 02/15/18 02/16/18 23:59 23:59 23:59 23:59 Intake Total 4050 200 Output Total 1126.0 710 1085 Balance 2924.0 -510 -1085 Last Vital Signs Temp Pulse Resp BP Pulse Ox 99.5 F 87 17 131/59 97 02/16/18 04:00 02/16/18 08:35 02/16/18 08:35 02/16/18 08:35 02/15/18 21:00 Active Medications Acetaminophen (Tylenol -) 650 mg PO Q4H PRN PRN Reason: PAIN LEVEL 1-5 Last Admin: 02/16/18 06:15 Dose: 650 mg Aspirin (Asa -) 81 mg PO DAILY [facility] Last Admin: 02/16/18 09:12 Dose: 81 mg Diazepam (Valium -) 5 mg PO Q8H PRN PRN Reason: ANXIETY Last Admin: 02/16/18 09:12 Dose: 5 mg Docusate Sodium (Colace -) 100 mg PO BID [facility] Last Admin: 02/16/18 09:11 Dose: 100 mg Enoxaparin Sodium (Lovenox -) 40 mg SQ DAILY [facility] Last Admin: 02/16/18 09:12 Dose: 40 mg Morphine Sulfate (Morphine Sulfate) 4 mg IVPUSH Q4H PRN PRN Reason: PAIN LEVEL 6-10 Oxycodone HCl (Roxicodone -) 5 mg PO Q4H PRN PRN Reason: PAIN LEVEL 1-5 Last Admin: 02/16/18 05:06 Dose: 5 mg Oxycodone HCl (Roxicodone -) 10 mg PO Q4H PRN PRN Reason: PAIN LEVEL 6-10 Last Admin: 02/15/18 17:08 Dose: 10 mg Oxycodone HCl (Oxycontin -) 10 mg PO BID [facility] Last Admin: 02/16/18 09:11 Dose: 10 mg Polyethylene Glycol (Miralax (For Daily Use) -) 17 gm PO DAILY [facility] Potassium Phos/Sodium Phos (Phos-Nak Packet -) 1 packet PO TID [facility] Stop: 02/16/18 22:01 Last Admin: 02/16/18 09:11 Dose: 1 packet Ranitidine HCl (Zantac -) 150 mg PO BID [facility] Last Admin: 02/16/18 09:12 Dose: 150 mg GENERAL: Awake, alert, and fully oriented, anxious HEAD: Normal with no signs of trauma. EARS, NOSE, THROAT:dry mucous membranes. NECK: Normal range of motion, supple without lymphadenopathy, JVD, or masses. LUNGS: Breath sounds equal, clear to auscultation bilaterally. No wheezes, and no crackles. No accessory muscle use. HEART: Regular rate and rhythm, normal S1 and S2 without murmur, ABDOMEN: Soft, nontender, not distended, suture line healthy, drains in situ draining serosanguinous fluid, suture line right breast next to areola healthy MUSCULOSKELETAL: Normal range of motion at all joints. No bony deformities or tenderness. No CVA tenderness. UPPER EXTREMITIES: 2+ pulses, warm, No peripheral edema. LOWER EXTREMITIES: warm, well-perfused. No calf tenderness. SKIN: Warm, dry, Laboratory Results - last 24 hr 02/15/18 02/15/18 02/16/18 05:30 05:30 05:30 WBC 12.3 H RBC 3.15 L Hgb 8.5 L Hct 25.7 L MCV 81.7 MCH 26.9 MCHC 32.9 RDW 15.6 Plt Count 169 MPV 10.0 Absolute Neuts (auto) 10.0 Neutrophils % 81.2 Lymphocytes % 8.8 D Monocytes % 9.4 Eosinophils % 0.3 Basophils % 0.3 Nucleated RBC % 0 Sodium Potassium Chloride Carbon Dioxide Anion Gap BUN Creatinine Creat Clearance w eGFR Random Glucose Calcium Phosphorus 3.0 Cancelled Magnesium 1.9 Cancelled Total Bilirubin AST ALT Alkaline Phosphatase Total Protein Albumin 02/16/18 05:30 WBC RBC Hgb Hct MCV MCH MCHC RDW Plt Count MPV Absolute Neuts (auto) Neutrophils % Lymphocytes % Monocytes % Eosinophils % Basophils % Nucleated RBC % Sodium 140 Potassium 3.7 Chloride 105 Carbon Dioxide 30 Anion Gap 5 L BUN 8 Creatinine 0.5 L Creat Clearance w eGFR > 60 Random Glucose 95 Calcium 7.6 L Phosphorus 1.7 L Magnesium 1.9 Total Bilirubin 0.4 AST 33 ALT 31 Alkaline Phosphatase 107 Total Protein 5.1 L Albumin 2.6 L ASSESSMENT/PLAN: POD #2: Bilateral breast reconstruction with Deep Inferior Epigastric Press Tender [employer] Microvascular Free Flaps Flap checks ASA Pain control Normal transfusion thresholds PO as tolerated VTE prophylaxis Zofran for nausea. Monitor drain outputs Incentive spirometry. Mobilize as tolerated Dr Spaulding
--- NOTE | 2018-02-16 11:00 | PN ---
Progress Note, Physician Chief Complaint: Genetic susceptibility for breast cancer BRCA positive s/p bilateral nipple sparing mastectomies and BALJIT reconstructions History of Present Illness: The patient has a striong family history of breast cancer and was diagnosed as high risk with a BRCA positive genetic susceptibility for breast cancer. She decided to undergoe prophylactic nipple sparing mastectomies with bilateral BALJIT flap reconstructions which was performed on February 14, 2018. - Current Medication List Current Medications: Active Medications Acetaminophen (Tylenol -) 650 mg PO Q4H PRN PRN Reason: PAIN LEVEL 1-5 Last Admin: 02/16/18 06:15 Dose: 650 mg Aspirin (Asa -) 81 mg PO DAILY [facility] Last Admin: 02/16/18 09:12 Dose: 81 mg Cephalexin HCl (Keflex -) 500 mg PO Q6HPO [facility] Diazepam (Valium -) 5 mg PO Q8H PRN PRN Reason: ANXIETY Last Admin: 02/16/18 09:12 Dose: 5 mg Docusate Sodium (Colace -) 100 mg PO BID [facility] Last Admin: 02/16/18 09:11 Dose: 100 mg Enoxaparin Sodium (Lovenox -) 40 mg SQ DAILY [facility] Last Admin: 02/16/18 09:12 Dose: 40 mg Morphine Sulfate (Morphine Sulfate) 4 mg IVPUSH Q4H PRN PRN Reason: PAIN LEVEL 6-10 Oxycodone HCl (Roxicodone -) 5 mg PO Q4H PRN PRN Reason: PAIN LEVEL 1-5 Last Admin: 02/16/18 05:06 Dose: 5 mg Oxycodone HCl (Roxicodone -) 10 mg PO Q4H PRN PRN Reason: PAIN LEVEL 6-10 Last Admin: 02/15/18 17:08 Dose: 10 mg Oxycodone HCl (Oxycontin -) 10 mg PO BID [facility] Last Admin: 02/16/18 09:11 Dose: 10 mg Polyethylene Glycol (Miralax (For Daily Use) -) 17 gm PO DAILY [facility] Potassium Phos/Sodium Phos (Phos-Nak Packet -) 1 packet PO TID [facility] Stop: 02/16/18 22:01 Last Admin: 02/16/18 09:11 Dose: 1 packet Ranitidine HCl (Zantac -) 150 mg PO BID [facility] Last Admin: 02/16/18 09:12 Dose: 150 mg - Objective Vital Signs: Vital Signs Temperature 98.9 F 02/16/18 10:45 Pulse Rate 87 02/16/18 08:35 Respiratory Rate 17 02/16/18 08:35 Blood Pressure 131/59 02/16/18 08:35 O2 Sat by Pulse Oximetry (%) 97 02/15/18 21:00 Constitutional: Yes: Well Nourished, No Distress Eyes: Yes: WNL HENT: Yes: Atraumatic, Normocephalic Neck: Yes: WNL Cardiovascular: Yes: Regular Rate and Rhythm Respiratory: Yes: Regular, CTA Bilaterally Gastrointestinal: Yes: Normal Bowel Sounds ...Rectal Exam: Yes: Deferred Breast(s): Yes: Other (Bilateral mastectomy wounds clean, dry, and inctact. Doppler pulse excellent on both flaps and skin warm and viable. abdominal wound clean, dry, and intact. Drains functioning well.) Musculoskeletal: Yes: WNL Extremities: Yes: WNL Wound/Incision: Yes: Clean/Dry, Well Approximated Neurological: Yes: Alert, Oriented Psychiatric: Yes: WNL Labs: CBC, BMP 02/16/18 05:30 02/16/18 05:30 Problem List - Problems (1) BRCA gene mutation positive Assessment/Plan: The patient is POD#2 s/p bilateral nipple sparing mastectomies with bilateral BALJIT reconstructions. Her flaps are warm and viable with good dopplerable pulses. Skin flaps viable. Her abdominal wound is clean, dry, and intact. Drains functioning well. She had her IV discontinued today and it can be left out today. She is on oxycontin and oxycodone for pain since her TAP block was not giving her significant pain relief. Now on oral keflex antibiotics. Will keep in ICU today and discharge to the floor tomorrow AM. OOB ambulating today. Code(s): Z15.01 - GENETIC SUSCEPTIBILITY TO MALIGNANT NEOPLASM OF BREAST; Z15.09 - GENETIC SUSCEPTIBILITY TO OTHER MALIGNANT NEOPLASM
[2018-02-16] MEDS: CEPHALEXIN MONOHYDRATE 500 MG CAPSULE (UD) PO SCH ×2 (12:00→18:49)
--- NOTE | 2018-02-16 12:39 | PN ---
Progress Note (short form) - Note Progress Note: Doing great Pulses are great with artery and vein Now OOB minimally Continue care
--- NOTE | 2018-02-16 13:20 | PN ---
Physical Exam: SUBJECTIVE: Patient seen and examined resting in bed nad. afebrile and hemodynamically stable. retained urine overnight; was straight cathed, yielding 900 cc clear urine. yesterday ambulated to chair. complains of diffuse cp but states her L arm is better with less pain and better rom. denies n/c, abd pain, sob, cough, f/c. no BM. OBJECTIVE: Vital Signs Period Temp Pulse Resp BP Sys/Carnes Pulse Ox Last 24 Hr 98.2 F-99.5 F 79-96 14-22 130-152/55-66 97-97 GENERAL: The patient is awake, alert, and fully oriented, in no acute distress. HEAD: Normal with no signs of trauma. EYES: PERRL, extraocular movements intact, sclera anicteric, conjunctiva clear. No ptosis. ENT: moist mucous membranes. NECK: supple. LUNGS: Breath sounds equal, clear to auscultation bilaterally HEART: Regular rate and rhythm, S1, S2 ABDOMEN: Soft, diffusely superficially tender, nondistended, globally diminished bowel sounds, no guarding, no rebound, no masses. b/l lower quadraint drains in place, collecting sero sanguineous fluid EXTREMITIES: 2+ pulses, warm, well-perfused, no edema. NEUROLOGICAL: Cranial nerves II through XII grossly intact. Normal speech, gait not observed. PSYCH: Normal mood, normal affect. SKIN: Warm, dry. b/l breast drain in place, collecting sero sanguineous fluid. clean dressing in place. Laboratory Results - last 24 hr 02/16/18 02/16/18 05:30 05:30 WBC 12.3 H RBC 3.15 L Hgb 8.5 L Hct 25.7 L MCV 81.7 MCH 26.9 MCHC 32.9 RDW 15.6 Plt Count 169 MPV 10.0 Absolute Neuts (auto) 10.0 Neutrophils % 81.2 Lymphocytes % 8.8 D Monocytes % 9.4 Eosinophils % 0.3 Basophils % 0.3 Nucleated RBC % 0 Sodium 140 Potassium 3.7 Chloride 105 Carbon Dioxide 30 Anion Gap 5 L BUN 8 Creatinine 0.5 L Creat Clearance w eGFR > 60 Random Glucose 95 Calcium 7.6 L Phosphorus 1.7 L Magnesium 1.9 Total Bilirubin 0.4 AST 33 ALT 31 Alkaline Phosphatase 107 Total Protein 5.1 L Albumin 2.6 L Active Medications Generic Name Dose Route Start Last Admin Trade Name Freq PRN Reason Stop Dose Admin Acetaminophen 650 mg 02/15/18 13:53 02/16/18 06:15 Tylenol - PO 650 mg Q4H PRN Administration PAIN LEVEL 1-5 Aspirin 81 mg 02/16/18 10:00 02/16/18 09:12 Asa - PO 81 mg DAILY [facility] Administration Cephalexin HCl 500 mg 02/16/18 12:00 Keflex - PO Q6HPO [facility] Diazepam 5 mg 02/14/18 19:00 02/16/18 09:12 Valium - PO 5 mg Q8H PRN Administration ANXIETY Docusate Sodium 100 mg 02/14/18 22:00 02/16/18 09:11 Colace - PO 100 mg BID [facility] Administration Enoxaparin Sodium 40 mg 02/15/18 10:00 02/16/18 09:12 Lovenox - SQ 40 mg DAILY [facility] Administration Morphine Sulfate 4 mg 02/15/18 13:52 Morphine Sulfate IVPUSH Q4H PRN PAIN LEVEL 6-10 Oxycodone HCl 5 mg 02/15/18 17:56 02/16/18 05:06 Roxicodone - PO 5 mg Q4H PRN Administration PAIN LEVEL 1-5 Oxycodone HCl 10 mg 02/14/18 17:56 02/15/18 17:08 Roxicodone - PO 10 mg Q4H PRN Administration PAIN LEVEL 6-10 Oxycodone HCl 10 mg 02/15/18 10:33 02/16/18 09:11 Oxycontin - PO 10 mg BID [facility] Administration Polyethylene Glycol 17 gm 02/16/18 10:00 Miralax (For Daily Use) - PO DAILY [facility] Potassium Phos/Sodium Phos 1 packet 02/16/18 07:40 02/16/18 09:11 Phos-Nak Packet - PO 02/16/18 22:01 1 packet TID [facility] Administration Ranitidine HCl 150 mg 02/15/18 22:00 02/16/18 09:12 Zantac - PO 150 mg BID [facility] Administration ASSESSMENT/PLAN: 42 y/o BRCA1 positive F with strong family h/o breast cancer s/p prophylactic mastectomy with breast reconstruction. 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 -monitor flap perfusion with dopplers -keflex 500 q 6 po -Incentive Spirometry -Pain management for Oxycodone and morphine IV prn, tylenol -zofran prn nausea -PT -asa 81 Drain outputs are decreasing: L Br: 70 yesterday 10 today R Br: 45 yesterday 10 today L Ab: 55 yesterday 30 today R Ab: 40 yesterday 35 today Urinary retention -secondary to surgery and opiates -given one dose of flomax -bladder scan and traight cath prn -wean off opiates FEN no ivf lytes stable regular diet ailin sq Dispo: ICU one more day, possible dc home tomorrow Problem List - Problems (1) Post-mastectomy pain Code(s): G89.18 - OTHER ACUTE POSTPROCEDURAL PAIN (2) BRCA gene mutation positive Code(s): Z15.01 - GENETIC SUSCEPTIBILITY TO MALIGNANT NEOPLASM OF BREAST; Z15.09 - GENETIC SUSCEPTIBILITY TO OTHER MALIGNANT NEOPLASM (3) Urinary retention Code(s): R33.9 - RETENTION OF URINE, UNSPECIFIED (4) Postoperative urinary retention Code(s): N99.89 - OTH POSTPROCEDURAL COMPLICATIONS AND DISORDERS OF SYS; R33.8 - OTHER RETENTION OF URINE Visit type - Emergency Visit Emergency Visit: Yes ED Registration Date: 02/14/18 Care time: The patient presented to the Emergency Department on the above date and was hospitalized for further evaluation of their emergent condition. - New Patient This patient is new to me today: No - Critical Care Critical Care patient: Yes Total Critical Care Time (in minutes): 40 Critical Care Statement: The care of this patient involved high complexity decision making to prevent further life threatening deterioration of the patient 's condition and/or to evaluate & treat vital organ system(s) failure or risk of failure. - Discharge Referral Referred to [facility] Med [facility].C.: No
[2018-02-16] MEDS ORDERED: IBUPROFEN 400 MG TABLET (FP) PO ONE (14:46)
[2018-02-17] MEDS: CEPHALEXIN MONOHYDRATE 500 MG CAPSULE (UD) PO SCH ×5 (00:25→23:51)
[2018-02-17] MEDS: oxyCODONE HCL 5 MG TABLET PO PRN (04:44)
[2018-02-17 06:10] LABS: HEMATOCRIT 23.6 % (32.4-45.2); HEMOGLOBIN 7.9 GM/dL (10.7-15.3); MCH 27.2 pg (25.7-33.7); MCHC 33.4 g/dl (32.0-36.0); MEAN CELL VOLUME 81.3 fl (80-96); MEAN PLT VOLUME 9.7 fl (7.5-11.1); PLATELET COUNT 178 K/MM3 (134-434); RBC 2.91 M/mm3 (3.60-5.2); RDW 15.6 % (11.6-15.6); WHITE BLOOD COUNT 9.4 K/mm3 (4.0-10.0)
[2018-02-17 07:00] LABS: ANION GAP 6 (8-16); BLOOD UREA NITROGEN 8 mg/dL (7-18); CALCIUM 7.6 mg/dL (8.5-10.1); CHLORIDE 106 mmol/L (98-107); CO2 30 mmol/L (21-32); CREATININE 0.6 mg/dL (0.55-1.02); GLUCOSE,RANDOM 101 mg/dL (74-106); MAGNESIUM 1.7 mg/dL (1.8-2.4); POTASSIUM 3.8 mmol/L (3.5-5.1); SODIUM 142 mmol/L (136-145)
--- NOTE | 2018-02-17 09:26 | PN ---
Progress Note, Physician Chief Complaint: Genetic susceptibility for breast cancer BRCA positive s/p bilateral nipple sparing mastectomies and BALJIT reconstructions History of Present Illness: The patient has a striong family history of breast cancer and was diagnosed as high risk with a BRCA positive genetic susceptibility for breast cancer. She decided to undergoe prophylactic nipple sparing mastectomies with bilateral BALJIT flap reconstructions which was performed on February 14, 2018. - Current Medication List Current Medications: Active Medications Acetaminophen (Tylenol -) 650 mg PO Q4H PRN PRN Reason: PAIN LEVEL 1-5 Last Admin: 02/16/18 06:15 Dose: 650 mg Aspirin (Asa -) 81 mg PO DAILY [facility] Last Admin: 02/16/18 09:12 Dose: 81 mg Cephalexin HCl (Keflex -) 500 mg PO Q6HPO [facility] Last Admin: 02/17/18 05:27 Dose: 500 mg Diazepam (Valium -) 5 mg PO Q8H PRN PRN Reason: ANXIETY Last Admin: 02/16/18 21:06 Dose: 5 mg Docusate Sodium (Colace -) 100 mg PO BID [facility] Last Admin: 02/16/18 21:06 Dose: 100 mg Enoxaparin Sodium (Lovenox -) 40 mg SQ DAILY [facility] Last Admin: 02/16/18 09:12 Dose: 40 mg Morphine Sulfate (Morphine Sulfate) 4 mg IVPUSH Q4H PRN PRN Reason: PAIN LEVEL 6-10 Oxycodone HCl (Roxicodone -) 5 mg PO Q4H PRN PRN Reason: PAIN LEVEL 1-5 Last Admin: 02/17/18 04:44 Dose: 5 mg Oxycodone HCl (Roxicodone -) 10 mg PO Q4H PRN PRN Reason: PAIN LEVEL 6-10 Last Admin: 02/15/18 17:08 Dose: 10 mg Oxycodone HCl (Oxycontin -) 10 mg PO BID [facility] Last Admin: 02/16/18 21:06 Dose: 10 mg Polyethylene Glycol (Miralax (For Daily Use) -) 17 gm PO DAILY [facility] Last Admin: 02/16/18 18:00 Dose: 17 gm Ranitidine HCl (Zantac -) 150 mg PO BID [facility] Last Admin: 02/16/18 21:06 Dose: 150 mg - Objective Vital Signs: Vital Signs Temperature 98.4 F 02/17/18 06:00 Pulse Rate 84 02/17/18 06:00 Respiratory Rate 18 02/17/18 06:00 Blood Pressure 130/70 02/17/18 06:00 O2 Sat by Pulse Oximetry (%) 96 02/17/18 09:00 Constitutional: Yes: Well Nourished, No Distress, Calm Eyes: Yes: WNL HENT: Yes: Atraumatic, Normocephalic Neck: Yes: WNL Cardiovascular: Yes: Regular Rate and Rhythm Respiratory: Yes: Regular, CTA Bilaterally Gastrointestinal: Yes: Normal Bowel Sounds, Soft ...Rectal Exam: Yes: Deferred Genitourinary: Yes: WNL Breast(s): Yes: Other (Matectomy wounds clean, dry, and intact. Drains functioning well. BALJIT flaps warm and viable with good dopplerable pulses. Abdominal wound clean, dry, and intact as well.) Musculoskeletal: Yes: WNL Extremities: Yes: WNL Wound/Incision: Yes: Clean/Dry, Well Approximated Neurological: Yes: Alert, Oriented ...Motor Strength: WNL Psychiatric: Yes: WNL Labs: CBC, BMP 02/17/18 05:30 02/17/18 05:30 Problem List - Problems (1) BRCA gene mutation positive Assessment/Plan: The patient is doing well POD#3 s/p bilateral nipple sparing mastectomies and BALJIT flap reconstructions. Her mastectomy wounds are clean and dry with good dopplerable BALJIT flaps. Skin flaps are warm and viable with some mild ecchymosis of nipples bilaterally. She is now ambulating well enough and her flpas with good viability to be transfered to floor today. To remain on oral antibiotics and ocycodone for pain. Likely discharge tomorrow AM. Begin Drain teaching and will arrange VNS for drain care on discharge. Code(s): Z15.01 - GENETIC SUSCEPTIBILITY TO MALIGNANT NEOPLASM OF BREAST; Z15.09 - GENETIC SUSCEPTIBILITY TO OTHER MALIGNANT NEOPLASM
--- NOTE | 2018-02-17 09:33 | DS ---
"Physical Examination Vital Signs: Vital Signs Temperature 98.4 F 02/17/18 06:00 Pulse Rate 84 02/17/18 06:00 Respiratory Rate 18 02/17/18 06:00 Blood Pressure 130/70 02/17/18 06:00 O2 Sat by Pulse Oximetry (%) 96 02/17/18 09:00 Constitutional: Yes: Well Nourished, No Distress Eyes: Yes: WNL HENT: Yes: Atraumatic, Normocephalic Neck: Yes: WNL Cardiovascular: Yes: Regular Rate and Rhythm Respiratory: Yes: Regular, CTA Bilaterally Gastrointestinal: Yes: Normal Bowel Sounds, Soft ...Rectal Exam: Yes: Deferred Renal/: Yes: WNL Breast(s): Yes: Other (Wounds clean, dry, and intact. BALJIT flaps warm and viable with good dopplerable signals. Mild ecchymosis of nipples bilaterally. Drains functioning well. Abdominal incision clean, dry, and intact.) Wound/Incision: Yes: Clean/Dry, Well Approximated Neurological: Yes: Alert, Oriented ...Motor Strength: WNL Psychiatric: Yes: WNL Labs: CBC, BMP 02/17/18 05:30 02/17/18 05:30 Discharge Summary Reason For Visit: GENETIC SUSPECPTIBILITY Current Active Problems Post-mastectomy pain (Acute) Postoperative urinary retention (Acute) Urinary retention (Acute) Procedures: Principal: Bilateral Nipple Sparing Mastectomies with bilateral BALJIT flap reconstructions Hospital Course: The patient was admitted postoperatively after her bilateral nipple sparing mastectomies and BALJIT flap reconstructions for pain management and monitoring of her BALJIT flaps for viability. She was admitted to the ICU for close flap monitoring. She had good doppler signals of her BALJIT reconstruction and good viability of her skin flaps. She had good pain control and her flaps were stable from a vascular standpoint and she was felt stable stable for transfer to the floor on POD#3. She continued to do well and was ambulating well enough for discharge by POD#4. Condition: Good - Instructions Diet, Activity, Other Instructions: Drs. Araujo and Yanet Discharge Instructions Diet: Resume regular diet. Avoid caffeinated beverages Encourage low salt diet to help with swelling. Encourage fluid intake. Activity: Please maintain flexed position at all times (when sleeping, place pillows behind back and under your knees). Sponge bath only until your office visit. Please be careful moving your arms too much and using your pectoralis muscles ( chest) for the first few days as well. Wound care: Please keep all dressings on as is. Can remove the gauze in bra before bathing, but leave all the tapes/steri-strips on. Please wear surgical bra at all times, except when bathing. Swelling in the abdomen, flanks and thighs is to be expected. Feeling of deep soreness is also to be expected. Medication: Patient already received all prescriptions prior to surgery. Please take them as instructed. Appointment: Please call our office within one week to make an appointment to see your surgeon at [phone]. If you have any questions or concerns, please call/return to office sooner. This report was requested by: Ashley Flores | Reference #: [id number] Keep bra on day/night No heavy activity or exercise but may ambulate as much as possible Record drain outputs daily No bath/shower until drains removed but may sponge bath and was hair in sink Referrals: Gerson Augustin MD [Staff Physician] - Linden Araujo MD [Staff Physician] - Disposition: HOME - Home Medications Comprehensive Discharge Medication List: Ambulatory Orders Multivitamins [Tab-A-Vit -] 1 tab PO DAILY 02/12/18 Aspirin [Aspirin EC] 81 mg PO DAILY #30 tablet. 02/15/18 Docusate Sodium [Colace -] 100 mg PO BID PRN #14 capsule 02/15/18 Oxycodone HCl/Acetaminophen [Percocet 5-325 mg Tablet] 1 - 2 tab PO Q6H PRN #30 tab MDD 8 02/15/18"
--- NOTE | 2018-02-17 09:42 | PN ---
Teaching Attending Note Name of Resident: Mello Suarez ATTENDING PHYSICIAN STATEMENT I saw and evaluated the patient. I reviewed the resident's note and discussed the case with the resident. I agree with the resident's findings and plan as documented. SUBJECTIVE: Patient seen and examined in the ICU. Awake and alert. Reports further improvement in Left UE pain/discomfort. Diffuse body aches are better. No CP or SOB. Intake & Output 02/14/18 02/15/18 02/16/18 02/17/18 23:59 23:59 23:59 23:59 Intake Total 4050 200 1300 360 Output Total 1126.0 710 1445 136 Balance 2924.0 -510 -145 224 Weight 195 lb Last Vital Signs Temp Pulse Resp BP Pulse Ox 98.4 F 84 18 130/70 96 02/17/18 06:00 02/17/18 06:00 02/17/18 06:00 02/17/18 06:00 02/17/18 09:00 Active Medications Acetaminophen (Tylenol -) 650 mg PO Q4H PRN PRN Reason: PAIN LEVEL 1-5 Last Admin: 02/16/18 06:15 Dose: 650 mg Aspirin (Asa -) 81 mg PO DAILY [facility] Last Admin: 02/16/18 09:12 Dose: 81 mg Cephalexin HCl (Keflex -) 500 mg PO Q6HPO [facility] Last Admin: 02/17/18 05:27 Dose: 500 mg Diazepam (Valium -) 5 mg PO Q8H PRN PRN Reason: ANXIETY Last Admin: 02/16/18 21:06 Dose: 5 mg Docusate Sodium (Colace -) 100 mg PO BID [facility] Last Admin: 02/16/18 21:06 Dose: 100 mg Enoxaparin Sodium (Lovenox -) 40 mg SQ DAILY [facility] Last Admin: 02/16/18 09:12 Dose: 40 mg Morphine Sulfate (Morphine Sulfate) 4 mg IVPUSH Q4H PRN PRN Reason: PAIN LEVEL 6-10 Oxycodone HCl (Roxicodone -) 5 mg PO Q4H PRN PRN Reason: PAIN LEVEL 1-5 Last Admin: 02/17/18 04:44 Dose: 5 mg Oxycodone HCl (Roxicodone -) 10 mg PO Q4H PRN PRN Reason: PAIN LEVEL 6-10 Last Admin: 02/15/18 17:08 Dose: 10 mg Oxycodone HCl (Oxycontin -) 10 mg PO BID [facility] Last Admin: 02/16/18 21:06 Dose: 10 mg Polyethylene Glycol (Miralax (For Daily Use) -) 17 gm PO DAILY [facility] Last Admin: 02/16/18 18:00 Dose: 17 gm Ranitidine HCl (Zantac -) 150 mg PO BID [facility] Last Admin: 02/16/18 21:06 Dose: 150 mg GENERAL: Awake, alert, and fully oriented, more comfortable HEAD: Normal with no signs of trauma. EARS, NOSE, THROAT:dry mucous membranes. NECK: Normal range of motion, supple without lymphadenopathy, JVD, or masses. LUNGS: Breath sounds equal, clear to auscultation bilaterally. No wheezes, and no crackles. No accessory muscle use. HEART: Regular rate and rhythm, normal S1 and S2 without murmur, ABDOMEN: Soft, nontender, not distended, suture line healthy, drains in situ draining serosanguinous fluid, suture line right breast next to areola healthy MUSCULOSKELETAL: Normal range of motion at all joints. No bony deformities or tenderness. No CVA tenderness. UPPER EXTREMITIES: 2+ pulses, warm, No peripheral edema. LOWER EXTREMITIES: warm, well-perfused. No calf tenderness. SKIN: Warm, dry, Laboratory Results - last 24 hr 02/17/18 02/17/18 05:30 05:30 WBC 9.4 RBC 2.91 L Hgb 7.9 L Hct 23.6 L MCV 81.3 MCH 27.2 MCHC 33.4 RDW 15.6 Plt Count 178 MPV 9.7 Sodium 142 Potassium 3.8 Chloride 106 Carbon Dioxide 30 Anion Gap 6 L BUN 8 Creatinine 0.6 Creat Clearance w eGFR > 60 Random Glucose 101 Calcium 7.6 L Phosphorus 2.0 L Magnesium 1.7 L ASSESSMENT/PLAN: POD #3: Bilateral breast reconstruction with Deep Inferior Epigastric Graphite Pan Drier Tender Microvascular Free Flaps Flap checks ASA Pain control Normal transfusion thresholds PO as tolerated VTE prophylaxis Zofran for nausea. Monitor drain outputs Incentive spirometry. Mobilize as tolerated Dr Spaulding
[2018-02-17] MEDS: ASPIRIN 81 MG CHEWABLE TABLETS PO SCH (10:29)
[2018-02-17] MEDS: ENOXAPARIN NA (PORCINE) 40 MG/0.4 ML DISP.SYRIN SQ SCH (10:29)
[2018-02-17] MEDS: DOCUSATE SODIUM 100 MG CAPSULE (FP) PO SCH ×2 (10:29→21:48)
[2018-02-17] MEDS: RANITIDINE HCL 150 MG TABLET (FP) PO SCH ×2 (10:29→21:48)
[2018-02-17] MEDS: diazePAM 5 MG TABLET PO PRN (10:29)
[2018-02-17] MEDS: oxyCODONE HCL 10 MG SUSTAINED ACTING TABLET PO SCH ×2 (10:30→21:48)
[2018-02-17] MEDS: POLYETHYLENE GLYCOL 3350 119 GM BTL PO SCH (10:30)
[2018-02-17] MEDS ORDERED: ONDANSETRON 4 MG TABLET PO ONE (11:00)
[2018-02-17] MEDS ORDERED: diazePAM 5 MG TABLET PO PRN (14:43)
[2018-02-17] MEDS ORDERED: oxyCODONE HCL 5 MG TABLET PO PRN ×2 (14:43)
--- NOTE | 2018-02-17 16:23 | PN ---
Physical Exam: SUBJECTIVE: Patient seen and examined today in icu. POD 3. Pt states she is feeling much better and pain is subsiding in left upper extremity. Has not had bowel movement. Denies cp, sob, nausea, or vomiting. OBJECTIVE: Vital Signs Temperature 97.8 F 02/17/18 15:17 Pulse Rate 89 02/17/18 15:17 Respiratory Rate 18 02/17/18 15:17 Blood Pressure 129/70 02/17/18 15:17 O2 Sat by Pulse Oximetry (%) 96 02/17/18 09:00 GENERAL: The patient is awake, alert, and fully oriented, in no acute distress. HEAD: Normal with no signs of trauma. EYES: PERRL, extraocular movements intact, sclera anicteric, conjunctiva clear. No ptosis. ENT: Ears normal, nares patent, oropharynx clear without exudates, moist mucous membranes. NECK: Trachea midline, full range of motion, supple. LUNGS: Breath sounds equal, clear to auscultation bilaterally, no wheezes, no crackles, no accessory muscle use. HEART: RRR, - m/r/g, +s1,s2 ABDOMEN: Soft,tender, nondistended, - bowel sounds. EXTREMITIES: 2+ pulses, warm, well-perfused, no edema. NEUROLOGICAL: Cranial nerves II through XII grossly intact. Normal speech, gait not observed. PSYCH: Normal mood, normal affect. SKIN: Warm, dry, normal turgor. Laboratory Results - last 24 hr 02/17/18 02/17/18 05:30 05:30 WBC 9.4 RBC 2.91 L Hgb 7.9 L Hct 23.6 L MCV 81.3 MCH 27.2 MCHC 33.4 RDW 15.6 Plt Count 178 MPV 9.7 Sodium 142 Potassium 3.8 Chloride 106 Carbon Dioxide 30 Anion Gap 6 L BUN 8 Creatinine 0.6 Creat Clearance w eGFR > 60 Random Glucose 101 Calcium 7.6 L Phosphorus 2.0 L Magnesium 1.7 L Active Medications Generic Name Dose Route Start Last Admin Trade Name Freq PRN Reason Stop Dose Admin Acetaminophen 650 mg 02/17/18 14:43 Tylenol - PO Q4H PRN PAIN LEVEL 1-5 Aspirin 81 mg 02/18/18 10:00 Asa - PO DAILY [facility] Cephalexin HCl 500 mg 02/17/18 18:00 Keflex - PO Q6HPO [facility] Diazepam 5 mg 02/17/18 14:43 Valium - PO Q8H PRN ANXIETY Docusate Sodium 100 mg 02/17/18 22:00 Colace - PO BID [facility] Enoxaparin Sodium 40 mg 02/18/18 10:00 Lovenox - SQ DAILY [facility] Oxycodone HCl 5 mg 02/17/18 14:43 Roxicodone - PO Q4H PRN PAIN LEVEL 1-5 Oxycodone HCl 10 mg 02/17/18 14:43 Roxicodone - PO Q4H PRN PAIN LEVEL 6-10 Oxycodone HCl 10 mg 02/17/18 22:00 Oxycontin - PO BID [facility] Polyethylene Glycol 17 gm 02/18/18 10:00 Miralax (For Daily Use) - PO DAILY [facility] Ranitidine HCl 150 mg 02/17/18 22:00 Zantac - PO BID [facility] ASSESSMENT/PLAN: 42 y/o BRCA1 positive F with strong family h/o breast cancer. She underwent reduction mammoplasty at age 24. Admitted for prophylactic/ risk reduction mastectomy with breast reconstruction. Bilateral breast reconstruction with Deep Inferior Epigastric Web Site Admin Microvascular Free Flaps Flap check Incentive Spirometry Keflex 500 mg po q6h Pain control- Oxycodone monitor drain outputs SCD's both legs Zofran for Nausea FEN No Fluids Monitor electrolytes Regular diet DVT ppx: Pt on Lovenox 40 mg sq daily Dispo: Pt d/c either today or tomorrow. Visit type - Emergency Visit Emergency Visit: No - New Patient This patient is new to me today: No - Critical Care Critical Care patient: Yes Total Critical Care Time (in minutes): 35 Critical Care Statement: The care of this patient involved high complexity decision making to prevent further life threatening deterioration of the patient 's condition and/or to evaluate & treat vital organ system(s) failure or risk of failure.
[2018-02-17] MEDS: ACETAMINOPHEN 325 MG TABLET (FP) PO PRN (18:42)
[2018-02-18] MEDS: ACETAMINOPHEN 325 MG TABLET (FP) PO PRN ×2 (02:06→10:35)
[2018-02-18] MEDS: CEPHALEXIN MONOHYDRATE 500 MG CAPSULE (UD) PO SCH ×2 (05:45→11:18)
[2018-02-18] MEDS: oxyCODONE HCL 10 MG SUSTAINED ACTING TABLET PO SCH (09:37)
[2018-02-18] MEDS: RANITIDINE HCL 150 MG TABLET (FP) PO SCH (09:37)
[2018-02-18] MEDS: DOCUSATE SODIUM 100 MG CAPSULE (FP) PO SCH (09:37)
[2018-02-18] MEDS ORDERED: ASPIRIN 81 MG CHEWABLE TABLETS PO SCH (10:00)
[2018-02-18] MEDS ORDERED: ENOXAPARIN NA (PORCINE) 40 MG/0.4 ML DISP.SYRIN SQ SCH (10:00)
[2018-02-18] MEDS ORDERED: POLYETHYLENE GLYCOL 3350 119 GM BTL PO SCH (10:00)
--- NOTE | 2018-02-18 10:39 | PN ---
Progress Note, Physician Chief Complaint: BRCA positve S/P bilateral total mastectomies and BALJIT reconstruction POD #4 History of Present Illness: Patient has been ambulating ,no nausea or vomiting,pain controlled ,improvement in arm pain, constipated given colace and miralax - Current Medication List Current Medications: Active Medications Acetaminophen (Tylenol -) 650 mg PO Q4H PRN PRN Reason: PAIN LEVEL 1-5 Last Admin: 02/18/18 02:06 Dose: 650 mg Aspirin (Asa -) 81 mg PO DAILY [facility] Last Admin: 02/18/18 09:37 Dose: 81 mg Cephalexin HCl (Keflex -) 500 mg PO Q6HPO [facility] Last Admin: 02/18/18 05:45 Dose: 500 mg Diazepam (Valium -) 5 mg PO Q8H PRN PRN Reason: ANXIETY Last Admin: 02/18/18 03:43 Dose: 5 mg Docusate Sodium (Colace -) 100 mg PO BID [facility] Last Admin: 02/18/18 09:37 Dose: 100 mg Enoxaparin Sodium (Lovenox -) 40 mg SQ DAILY [facility] Last Admin: 02/18/18 09:36 Dose: 40 mg Oxycodone HCl (Roxicodone -) 5 mg PO Q4H PRN PRN Reason: PAIN LEVEL 1-5 Oxycodone HCl (Roxicodone -) 10 mg PO Q4H PRN PRN Reason: PAIN LEVEL 6-10 Oxycodone HCl (Oxycontin -) 10 mg PO BID [facility] Last Admin: 02/18/18 09:37 Dose: 10 mg Polyethylene Glycol (Miralax (For Daily Use) -) 17 gm PO DAILY [facility] Last Admin: 02/18/18 09:39 Dose: 17 gm Ranitidine HCl (Zantac -) 150 mg PO BID [facility] Last Admin: 02/18/18 09:37 Dose: 150 mg - Objective Vital Signs: Vital Signs Temperature 97.4 F L 02/18/18 08:00 Pulse Rate 102 H 02/18/18 08:00 Respiratory Rate 20 02/18/18 08:00 Blood Pressure 122/83 02/18/18 08:00 O2 Sat by Pulse Oximetry (%) 96 02/17/18 20:13 Constitutional: Yes: No Distress Breast(s): Yes: Other (Bilateral flaps viable incisions intact smal periareolar incision viable THAD drains functioning serosanguinousoutput, abdomen soft incision intact drains functioningwell) Labs: CBC, BMP 02/17/18 05:30 02/17/18 05:30 Problem List - Problems (1) BRCA gene mutation positive Code(s): Z15.01 - GENETIC SUSCEPTIBILITY TO MALIGNANT NEOPLASM OF BREAST; Z15.09 - GENETIC SUSCEPTIBILITY TO OTHER MALIGNANT NEOPLASM Assessment/Plan discharge patient home today colace for constipation, 81 mg ASA percocet prn alternating with tylenol patient has appt this week with Dr Augustin and Dr Araujo
[2018-02-18 15:41] VITALS: BP 125/72; PULSE 85; TEMP 98.5
--- NOTE | 2018-02-19 10:33 | OP ---
DATE OF OPERATION: 02/14/2018 PREOPERATIVE DIAGNOSES: 1. Genetic predisposition to development of breast cancer. 2. Acquired absence of bilateral breasts. POSTOPERATIVE DIAGNOSES: 1. Genetic predisposition to development of breast cancer. 2. Acquired absence of bilateral breasts. PROCEDURES: 1. Immediate right breast reconstruction with deep inferior epigastric catalytic converter operator helper microvascular free flap. 2. Immediate left breast reconstruction with deep inferior epigastric catalytic converter operator helper microvascular free flap. 3. Bilateral partial resection of 4th ribs. 4. Bilateral exploration of internal mammary vessels with extensive adventitectomies. 5. Bilateral intraoperative angiography of mastectomy skin flaps and lower abdominal flaps. 6. Processing and interpretation of bilateral intraoperative angiography images. 7. Bilateral ultrasound-guided transverse abdominus plane blocks. ATTENDING SURGEON: Apollo Valladares MD COSURGEON: Gerson Araujo MD ANESTHESIA: General endotracheal. ESTIMATED BLOOD LOSS: 250 mL. SPECIMENS: As per surgical oncology. DRAINS: 1. No. 15 round Viraj drain x1 to right breast. 2. No. 15 round Viraj drain x1 to left breast. 3. No. 19 round Viraj drain x2 to abdomen. COMPLICATIONS: None. CONDITION: Stable to recovery room, extubated. INDICATIONS: The patient is a 42-year-old female with a genetic mutation predisposing her to development of breast cancer, as well as a strong family history. The patient has elected to undergo bilateral nipple-sparing mastectomies on a prophylactic basis. She was evaluated preoperatively for immediate reconstruction, and she is most appropriately a candidate for autologous reconstruction using her lower abdominal tissue. The risks, benefits, and alternatives of the reconstruction were discussed with the patient in detail, and all questions have been answered. The risks include but are not limited to bleeding, infection, pain, need for revision or further surgery, partial or complete flap loss, partial or complete nipple loss, damage to neighboring structures including nerves, arteries, veins, and tendons. The patient understands these risks and has elected to proceed with surgery. The procedure is as follows. DESCRIPTION OF PROCEDURE: After appropriate identification and marking the patient in the preoperative holding area, the patient was transported to the operating room and placed supine on the table. monitors were applied. Intravenous access was established. General anesthesia was administered and the patient was intubated without difficulty. SCDs were applied to bilateral lower extremities. Intravenous antibiotics were then given. Carlson catheter was then placed. Subcutaneous heparin, 5000 units, was then given. Patient's bilateral breasts as well as abdomen and flanks were prepped and draped in the usual sterile fashion. Dr. Augustin from surgical oncology then proceeded to perform bilaterally nipple-sparing mastectomies utilizing inframammary fold approaches. These procedures will be dictated separately. Concurrently, Dr. Araujo and I began working on the reconstruction independently as cosurgeons with separate instrument setups. Our attention was first turned towards the umbilicus where skin hooks were placed at the 12 and 6 o'clock position. The umbilicus was circumferentially incised with a No. 15-blade. A periumbilical dissection was then performed with the Metzenbaum scissors, with care taken to leave adequate periumbilical fat. Next, the superior and inferior limbs below the abdominal flap were incised. The superior limb was carried down through the full thickness of the subcutaneous tissue with electrocautery, with care taken to bevel slightly outwards. Once the anterior abdominal wall was reached, the superior abdominal skin flap was raised up to the xiphoid process in the midline and the costal margin bilaterally. At this point, the inferior skin incision was deepened layer by layer with electrocautery. Bilateral superficial inferior epigastric veins were identified. More proximal dissection was performed along these veins until adequate length and caliber had been achieved. Once adequate length and caliber had been achieved, the veins were ligated and divided at the most proximal extent of the dissections. Remainder of the subcutaneous tissue was then dissected down to the anterior abdominal wall. At this point, the lower abdominal flap was bisected in the midline with a No. 10-blade. This was carried down through full thickness to the linea alba. At this point, attention was turned towards the right-sided flap which was raised from a lateral to medial direction just above the anterior abdominal wall. There was noted to be a large lateral row catalytic converter operator helper centered in the flap and a smaller secondary catalytic converter operator helper superior to this but along the same line. The decision was made to base the catalytic converter operator helper flap off of these 2 lateral row perforators on the right side. Therefore, the perforators were circumferentially dissected as they exited through the fascia. The fascia was then opened superiorly and inferiorly as well as between the 2 perforators. At this point, retrograde catalytic converter operator helper dissections were performed through the full thickness of the rectus abdominis muscle fiber. Care was taken to divide the muscle fibers longitudinally. Muscular side branches were individually identified, circumferentially dissected, ligated, and divided. The perforators were dissected to their takeoff from the inferior epigastric pedicle. Once this was encountered, the superior continuation of the pedicle was circumferentially dissected, ligated, and divided. At this point, a more proximal pedicle dissection was performed until adequate length and caliber had been achieved. The remainder of the lower abdominal flap was then raised off the anterior abdominal wall such that it was based on these 2 lateral row perforators. At this point the flap was temporary stapled in place and attention was turned towards the skin paddle where a skin signal was achieved and marked with a 5-0 Prolene suture. A marginal skin paddle was designed, and the remainder of the flap was deepithelialized. At this point, attention was turned towards the left side for the flap dissection. The flap was again raised from a lateral to medial direction. There was noted to be a large single dominant lateral row catalytic converter operator helper centered in the flap and with a strong palpable pulse. The decision was made to base the left-sided flap off of this dominant lateral row catalytic converter operator helper. Therefore, the lateral row catalytic converter operator helper was circumferentially dissected as it exited through the fascia. The fascia was then opened superiorly and inferiorly around the catalytic converter operator helper. At this point in a similar fashion as to the right side, a retrograde catalytic converter operator helper dissection was performed through the full thickness of the rectus abdominis muscle fibers. Again, the fibers were divided longitudinally. Muscular side branches were individually identified, circumferentially dissected, ligated and divided. Once the takeoff from the inferior epigastric pedicle was identified, the superior continuation of the pedicle was ligated and divided. At this point a more proximal pedicle dissection was performed until adequate length and caliber had been achieved on this pedicle as well. The remainder of the left-sided flap was then carefully raised off of the anterior abdominal wall. At this point, a skin signal was achieved on this flap as well, and it was noted to be centered in the flap. Therefore, a small skin paddle was designed around this and the remainder of the flap deepithelialized. There was noted to be good dermal bleeding from all zones of bilateral flaps. At this point bilateral flaps were carefully stapled in place and the SPY system was brought into the field. Dr. Augustin had finished bilaterally mastectomies, and therefore attention was turned towards intraoperative angiography. A 4-mL intravenous injection of indocyanine green was given and angiography was performed of bilateral mastectomy skin flaps as well as bilateral lower abdominal flaps. The mastectomy skin flaps were noted to have good perfusion to all zones, as well as the nipple-areola complexes. Additionally, the lower abdominal flaps were noted to be well perfused throughout all zones as well. At this point, the right mastectomy specimen was weighed and noted to weight 673 g. The left mastectomy specimen was weighed and noted to weigh 622 g. At this point, attention was turned towards harvesting of recipient vessels. Attention was first turned toward the left breast pocket where self-retaining retractors were placed. The interspace between the 3rd and 4th rib was identified. The pectoralis minor muscle was divided along its fibers at this interspace, and a self-retaining retractor was then used to spread the pectoralis major fibers. At this point the periosteum, perichondrium on the superior surface of the 4th rib were incised. A circumferential subperiosteal dissection was performed, and at this point partial resection of the left 4th rib at the costochondral junction was performed. The periosteum and perichondrium in the deep surface were then completely incised and the underlying internal mammary vessels were identified. There was noted to be a large medial vein and a 2-mm artery. At this point, microvascular instruments and techniques were used to explore the internal mammary vessels and extensive adventitectomies were performed on the artery as well as the accompanying vein. Once the vessels were adequately prepared for the microvascular anastomoses, attention was turned towards the right side where the exact same procedure was performed in order to partially resect the right 4th rib and explore the internal mammary vessels, and therefore only one side will be dictated. Once bilateral recipient vessels were prepared, attention was turned towards the microvascular transfers. The right-sided abdominal flap was ligated and divided at the most proximal extent of the pedicle dissection. It was brought up to the left breast pocket where it was temporarily stapled in place. At this point the microvascular anastomoses were performed. There was noted to be a single deep flap vein, and this was anastomosed to the antegrade stump of the internal mammary vein using 2.5-mm [employer] accounts receivable executive. There was noted to be good backflow across this anastomosis. Next, attention was turned towards the arterial anastomosis between the internal mammary artery and the inferior epigastric artery. This was performed using an 8-0 nylon suture in a simple interrupted fashion. Release of all clamps revealed good flow across this anastomosis and good bleeding from the flap dermal edges. The superficial inferior epigastric vein was noted to be quite full at this point, and therefore the vascular clip on it was released and there was noted to be good egress of venous blood through this superficial vein. The decision was made to perform a second venous anastomosis between the superficial inferior epigastric vein and the retrograde stump of the internal mammary vein. This was performed using a 2.5-mm [employer] accounts receivable executive. Release of all clamps revealed good flow across this anastomosis as well. At this point, the left breast pocket was copiously irrigated and hemostasis was ensured. The left breast flap was then carefully placed into the left breast pocket. The flap weight on this side was noted to weigh 912 g. The flap was positioned appropriately, and care was taken to ensure good lie of the pedicle without twisting or kinking. The flap was then inset to the chest wall using 2-0 Vicryl suture in a simple interrupted fashion. The marginal skin paddle was then externalized along the internal mammary fold. A No. 15 round Viraj drain was then placed underneath the mastectomy skin flap on the left side and brought up through a separate stab incision laterally and secured to the skin with a 3-0 nylon suture. The flap skin paddle was then inset to the mastectomy flap skin edges using a 3-0 Monocryl in a buried deep dermal fashion followed by a 3-0 Monocryl in a running subcuticular fashion. Once this was completed, attention was turned towards the right-sided microvascular transfer. The left-sided lower abdominal flap was ligated and divided at the most proximal extent of the pedicle dissection. It was weighed, and it was noted to weigh 932 g and was brought up to the right breast pocket where it was temporarily stapled in place. At this point the microvascular anastomoses were performed. The single deep flap vein was anastomosed to the antegrade stump of the internal mammary vein using a 3.0-mm [employer] accounts receivable executive. Release of all clamps revealed good backflow across this anastomosis. Next, a primary hand-sewn anastomosis was performed between the internal mammary artery and inferior epigastric artery using 8-0 nylon suture in a simple interrupted fashion. Release of all clamps revealed good flow across this anastomosis as well and good bleeding from the flap skin edges. At this point the superficial inferior epigastric vein on the right-sided breast flap was anastomosed to the retrograde stump of the internal mammary vein using 3.0-mm [employer] accounts receivable executive. Release of all clamps revealed good flow across this anastomosis as well. At this point, attention was turned towards insetting of the right flap as well. It was inset in a similar fashion as to the left side, and therefore only one side will be dictated. The skin paddle on the right-sided flap was noted to be centered underneath the nipple-areolar complex, and therefore the decision was made to externalize the small skin paddle on the medial edge of the areola. Therefore, a curvilinear incision at the junction of the areola, where the patient had a previous scar, was incised with a No. 15-blade. The underlying skin paddle of the catalytic converter operator helper flap was brought up through this opening and was inset to the surrounding skin edges using a 3-0 Monocryl in a buried deep dermal fashion, followed by a 5-0 plain gut in a simple running fashion. The inframammary fold incision was closed in layers using a 3-0 PDS in a buried deep dermal fashion followed by 3-0 Monocryl in a running subcuticular fashion. A No. 15 round Viraj drain had been placed underneath the right mastectomy skin flap in a similar fashion as to the left side as well. With bilateral skin incisions closed, Doppler examination of bilateral skin paddles revealed strong signals. Concurrently, closure of the abdomen was performed. The fascial incisions bilaterally were reapproximated using a 0 V-Loc suture in a simple running fashion. At this point, attention was turned towards the transversus abdominis plane regional nerve blocks. The ultrasound system was brought into the field. A local anesthetic solution consisting of 20 mL of Exparel mixed with 30 mL of 0.25% Marcaine and 80 mL of normal saline was used to perform the transversus abdominis plane blocks. A total of 30 mL was injected into each transverse abdominus plane, again under ultrasound guidance. Once the regional nerve blocks were completed, the patient was placed into a flexed position. Two No. 19 round Viraj drains were placed in the abdominal pocket and brought out through separate stab incisions laterally and secured to the skin with 3-0 nylon sutures. The lower abdominal flap was temporarily stapled closed. The site of the umbilicus transposition was marked, and a vertically oriented ellipse was excised with a core of fat at the site of the umbilical transposition. The umbilicus was then transposed and inset using a 3-0 PDS in a buried deep dermal fashion followed by a 4-0 Monocryl in a running subcuticular fashion. The lower abdominal incision was closed in layers using a 2-0 Vicryl in an interrupted buried fashion in Chito's layer, followed by a 3-0 PDS in a buried deep dermal fashion and finally a 3-0 Monocryl in a running subcuticular fashion. At this point with all incisions closed, attention was turned towards dressings. Prineo tape was applied to the lower abdominal closure line. All drains were dressed with Biopatch and Tegaderms. The breast incisions were dressed with Dermabond and Steri-Strips, and the umbilicus was dressed with Xeroform, dry gauze, and Tegaderm. The patient at this point was slowly awakened and extubated without incident and was transported to recovery room in stable condition. Doppler examination upon entering recovery room revealed strong biphasic signals bilaterally. APOLLO VALLADARES M.D. [id number]
--- NOTE | 2018-02-20 17:02 | PATH ---
Surgical Pathology Report Patient Name: CHIP FLORES [facility]. Rec. #: [id number] /Age/Gender: 1975 (Age: 42) / F Account: [id number] Location: [address] [place] [address]/[facility] Taken: 02/14/2018 Received: 02/14/2018 Reported: 02/20/2018 Physicians: Gerson Augustin M.D. Specimen(s) Received A: LEFT BREAST RETROAREOLAR B: RIGHT BREAST RETROAREOLAR C: LEFT BREAST LONG STITCH LATERAL SHORT STITCH SUPERIOR D: RIGHT BREAST LONG STITCH LATERAL SHORT STITCH SUPERIOR Clinical History Genetic susceptibility Intraoperative Consult Diagnosis A. Left breast retroareolar biopsy, frozen section: Negative for malignancy. B. Right breast retroareolar biopsy, frozen section: Negative for malignancy. Iris Dyer M.D., 02/14/18 Final Diagnosis A. LEFT BREAST RETROAREOLAR BIOPSY: BREAST TISSUE, NEGATIVE FOR MALIGNANCY. B. RIGHT BREAST RETROAREOLAR BIOPSY: BREAST TISSUE, NEGATIVE FOR MALIGNANCY. C. LEFT BREAST, MASTECTOMY: BREAST TISSUE WITH FOCAL DUCT ECTASIA AND FIBROSIS. D. RIGHT BREAST, MASTECTOMY: BREAST TISSUE WITH FOCAL ATYPICAL DUCTAL HYPERPLASIA (ADH), FIBROADENOMATOID CHANGE, DUCT ECTASIA, AND FIBROSIS. Electronically Signed Luciana Dyer M.D. Gross Description A. Received fresh labeled "left breast retroareolar biopsy," is a 1.6 x 1.1 x 0.3 cm allen-red portion of fibroadipose tissue. The specimen is entirely submitted for frozen section. The frozen section residue is entirely submitted in one cassette. B. Received fresh labeled "right breast retroareolar biopsy," is a 1.3 x 1.1 x 0.3 cm allen-red portion of fibroadipose tissue. The specimen is entirely submitted for frozen section. The frozen section residue is entirely submitted in one cassette. C. Received in formalin, labeled "left breast," is a 577 gram, 16.0 x 13.5 x 4.3 cm. left mastectomy specimen with a short suture marking the superior aspect and a long suture marking the lateral aspect of the specimen, per the surgeon. The anterior surface displays a 10.0 x 2.0 cm allen, elliptical portion of skin with a central, linear, well-healed scar. There is no nipple present. The deep margin is inked black and the anterior soft tissue margin is inked blue. The specimen is serially sectioned from medial to lateral. Sectioning reveals abundant white fibrous tissue. Manufacturing Engineering Director sections are submitted in 14 cassettes as follows: 1-3-upper outer quadrant; 4-6-lower outer quadrant; 7-9-upper inner quadrant; 10-12-lower inner quadrant; 13-skin and anterior soft tissue margin; 14-deep margin. D. Received in formalin, labeled "right breast," is a 659 gram, 16.0 x 15.0 x 4.8 cm. right mastectomy specimen with a short suture marking the superior aspect and a long suture marking the lateral aspect of the specimen, per the surgeon. The anterior surface displays a 9.5 x 1.2 cm allen, elliptical portion of skin with a central, linear, well-healed scar. There is no nipple present. The deep margin is inked black and the anterior soft tissue margin is inked blue. The specimen is serially sectioned from lateral to medial. Sectioning reveals abundant white fibrous tissue. Manufacturing Engineering Director sections are submitted in 15 cassettes as follows: 1-3-upper outer quadrant; 4-6-lower outer quadrant; 7-9-upper inner quadrant; 10-12-lower inner quadrant; 13-skin; 14-anterior soft tissue margin; 15-deep margin. Total formalin fixation time: Approximately 30 hours 02/14/201802/14/2018
== END 2018-02-18 15:45 | disposition home or self-care (01) | DRG 941 ==
LOC: EDSTATUS 08:00 → JSAMEDAYSX 02-14 06:06 → JICU 02-14 21:20 → J6S 02-17 14:13
PROVIDERS: ADMIT Surgery Surgical Oncology; ATTEND Surgery Surgical Oncology
PROC: 0HRV077 Replacement of Bilateral Breast using Deep Inferior Epigastric Artery Perforator Flap, Open Approach (ICD-10-PCS; principal; 2018-02-14 08:00)
DX: Z15.01 Genetic susceptibility to malignant neoplasm of breast (principal); Z80.3 Family history of malignant neoplasm of breast; N99.89 Other postprocedural complications and disorders of genitourinary system; R33.8 Other retention of urine; Z87.891 Personal history of nicotine dependence; R33.0 Drug induced retention of urine; T40.2X5A Adverse effect of other opioids, initial encounter; Y83.8 Other surgical procedures as the cause of abnormal reaction of the patient, or of later complication, without mention of misadventure at the time of the procedure
CPT/HCPCS: 36415; 80048; 80053; 83735; 84100; 84703; 85025; 85027; 86850; 86900; 86901; 94760; 97116-GP; 97161-GP; J0131; J1644

== ENCOUNTER 2018-11-29 12:29 | Day surgery (SDC) | payer BC ==
[2018-11-28 10:39] VITALS: BMI 30.7
== END 2018-11-29 13:00 | disposition home or self-care (01) ==
LOC: JASU-SURG 12:29
PROVIDERS: ATTEND Plastic Surgery
DX: Z53.8 Procedure and treatment not carried out for other reasons (principal)
CPT/HCPCS: 84703

== ENCOUNTER 2020-02-05 06:06 | Day surgery (SDC) | payer BC ==
[2020-01-30 16:19] VITALS: BMI 31.3
[2020-02-05] MEDS ORDERED: GENTAMICIN SO4 80 MG/2 ML VIAL ONE (07:15)
[2020-02-05] MEDS ORDERED: ceFAZolin SODIUM 1 GM VIAL ONE ×2 (07:15→09:19)
[2020-02-05] MEDS ORDERED: MIDAZOLAM HCL 2 MG/2 ML SINGLE DOSE VIAL ONE ×2 (07:27)
[2020-02-05] MEDS ORDERED: SUCCINYLCHOLINE CHLORIDE 200 MG/10 ML SYRINGE ONE (07:27)
[2020-02-05] MEDS ORDERED: PROPOFOL 20 ML ONE ×2 (07:27→08:38)
[2020-02-05] MEDS ORDERED: EPINEPHrine/PF 1 MG/1 ML (1:1,000) AMPULE ONE (07:43)
--- NOTE | 2020-02-05 07:44 | OP ---
Operative Note - Note: Operative Date: 02/05/20 Pre-Operative Diagnosis: acquired chest wall post mastectomy Operation: reconstruction with other technique bilateral Post-Operative Diagnosis: Same as Pre-op Surgeon: Linden Araujo Anesthesia: General Operative Report Dictated: Yes
[2020-02-05] MEDS ORDERED: ROCURONIUM BROMIDE 50 MG/5 ML SYRINGE ONE (07:48)
[2020-02-05] MEDS ORDERED: BUPIVACAINE HCL/EPINEPHRINE/PF 30 ML VIAL IJ ONE (08:05)
[2020-02-05] MEDS ORDERED: LIDOCAINE HCL/PF 2% SDV 5ML VIAL ONE (09:19)
[2020-02-05] MEDS ORDERED: DEXAMETHASONE SOD PHOSPHATE 4 MG/1 ML VIAL ONE (09:19)
[2020-02-05] MEDS ORDERED: ONDANSETRON 4 MG/2 ML VIAL ONE (09:19)
[2020-02-05] MEDS ORDERED: BUPIVACAINE 0.25% /EPI 1:200,000 10 ML VIAL PNB ONE (09:48)
[2020-02-05] MEDS ORDERED: PROMETHAZINE HCL 25 MG/1 ML VIAL IVPUSH PRN (10:09)
[2020-02-05] MEDS ORDERED: oxyCODONE HCL 5 MG TABLET PO PRN (10:09)
[2020-02-05] MEDS ORDERED: ONDANSETRON 4 MG/2 ML VIAL IVPUSH PRN (10:09)
[2020-02-05] MEDS ORDERED: LACTATED RINGERS SOLUTION 1,000 ML IV SCH (10:15)
[2020-02-05] MEDS ORDERED: ACETAMINOPHEN 325 MG TABLET (FP) ONE (12:13)
[2020-02-05 13:05] VITALS: BP 121/73; PULSE 78; TEMP 97.7
--- NOTE | 2020-02-11 14:12 | PATH ---
Surgical Pathology Report Patient Name: CHIP FLORES Med. Rec. #: [id number] /Age/Gender: 1975 (Age: 44) / F Account: [id number] Location: [facility] Taken: 02/05/2020 Received: 02/05/2020 Reported: 02/11/2020 Physicians: Linden Araujo Specimen(s) Received A: RIGHT BREAST TISSUE B: LEFT BREAST TISSUE Clinical History History of breast cancer Final Diagnosis A. BREAST TISSUE, RIGHT, EXCISION: SKIN WITH NO PATHOLOGIC FINDINGS. B. BREAST, TISSUE, LEFT, EXCISION: SKIN WITH NO PATHOLOGIC FINDINGS. Electronically Signed Shanice Dumont M.D. Gross Description A. Received in formalin labeled "right breast tissue," is a 7.5 x 3.5 cm allen, triangular, unoriented skin shave. No discrete lesions are identified. Pigment And Lacquer Mixer sections are submitted in one cassette. B. Received in formalin labeled "left breast tissue," is a 6.5 x 4.5 cm allen, triangular, unoriented skin shave. No discrete lesions are identified. Pigment And Lacquer Mixer sections are submitted in one cassette. /02/06/2020 saudi02/06/2020
--- NOTE | 2020-02-12 15:02 | OP ---
DATE OF OPERATION: 02/05/2020 SURGEON: Mellissa Araujo MD PREOPERATIVE DIAGNOSES: 1. Bilateral acquired chest wall deformity, status post bilateral mastectomy. 2. Acquired chest wall deformity, post mastectomy. 3. Asymmetry of reconstructed chest wall. 4. Personal history of breast carcinoma. POSTOPERATIVE DIAGNOSES: 1. Bilateral acquired chest wall deformity, status post bilateral mastectomy. 2. Acquired chest wall deformity, post mastectomy. 3. Asymmetry of reconstructed chest wall. 4. Personal history of breast carcinoma. OPERATIVE PROCEDURE: 1. Right breast reconstruction utilizing other technique. 2. Left breast reconstruction utilizing other technique. 3. Right breast tissue rearrangement and reconstruction with advancement flap. 4. Left breast reconstruction with advancement flap and tissue rearrangement. OPERATIVE INDICATION: Patient is a young woman who underwent bilateral breast reconstruction for carcinoma. The patient now presents with gross asymmetry of the chest wall with requirements for reconstruction with other technique. The risks and benefits of surgical versus nonsurgical alternatives as well as material complications were described to the patient preoperatively on multiple occasions prior and then today again in the holding area, where she was marked in the standing position for outline of the procedure. OPERATIVE PROCEDURE IN DETAIL: Patient was taken to the operating room, and after induction of general anesthesia in the supine position, both arms were extended and padded. Venodyne boots were placed. At this point, attention was turned to the mastectomy scars. The mastectomy scars were seen to be asymmetric and widened. These were marked for reconstruction and then injected with 0.25% Marcaine with epinephrine. The abdominal wall, which had previous scar deformities, was also marked for revisional reconstruction and donor tissue. After prepping and draping in the usual fashion and timeout, attention was turned to the mastectomy scars. After topical anesthesia and hemostasis were achieved, an incision was made down through skin to the subcutaneous tissue, through the subcutaneous tissue of the deep area of the medial, lateral, and central portions of the breast on the right and left side symmetrically. Dissection was carried down through the subcutaneous tissue to the deep area on the pectoralis major muscle on both sides and creating space for reconstruction with other technique once the deep pockets were created, superficial pocket in the superior, medial, and central portions of the right breast and the superior, medial, and central portions of the left breast independently. At this point, attention was then turned to the abdominal wall. An area on the medial aspect and lateral aspect of the previous scar deformity on the abdominal wall was injected and then incised down through the skin, to the subcutaneous tissue, down through the subcutaneous tissue to the deep musculature. The area over the rectus muscle and lateral oblique area was tunneled for reconstructive purposes. Tissue was then harvested from these areas and then transferred to the back table for reconstruction. Tissue was washed, cleansed, and prepared. Attention was then turned back to the chest wall. After advancement flap tissue rearrangement and medialization of the flaps, the tissue which had been harvested was transferred to the central, medial, and superior areas in the deep area over the pectoralis major muscle, within the pectoralis muscle itself, and created symmetry on both sides symmetrically. The abdominal wall was then closed using multiple sutures using interrupted and running suture, closing the defect. Once this was accomplished, attention was turned back to the chest wall. Symmetrizing procedure was carried out by advancement flaps both in the central and lateral and medial position, advancing the tissue upon itself and then closing the wound in layers using 2-0 PDS suture on the deep tissue, 3-0 PDS suture on the deep dermis, and a running subcuticular suture with 4-0 Biosyn on the skin. The patient tolerated procedure well. She was awakened, extubated, and transferred to the recovery room in a Surgi-Bra and compression dressing after Dermabond and Steri-Strip dressing was placed. MELLISSA ARAUJO M.D. [id number]
== END 2020-02-05 13:06 | disposition home or self-care (01) ==
LOC: FASU 06:06
PROVIDERS: ATTEND Plastic Surgery
PROC: 0HRV07Z Replacement of Bilateral Breast with Autologous Tissue Substitute, Open Approach (ICD-10-PCS; principal; 2020-02-05 08:11)
PROC: 0JX60ZC Transfer Chest Subcutaneous Tissue and Fascia with Skin, Subcutaneous Tissue and Fascia, Open Approach (ICD-10-PCS; 2020-02-05 08:11)
DX: M95.4 Acquired deformity of chest and rib (principal); Z90.13 Acquired absence of bilateral breasts and nipples; N65.1 Disproportion of reconstructed breast; Z85.3 Personal history of malignant neoplasm of breast
CPT/HCPCS: 81025; 88304-TC; 94760